=== PATIENT | female | born 1970 | race Caucasian/White ===

== ENCOUNTER 2020-01-04 10:21 | Emergency (ER) | payer OTHER, SELFPAY ==
--- NOTE | 2020-01-04 10:28 | ED.GENADULT ---
HPI - General Adult General Stated complaint: vaping celulitis Time Seen by Provider: 01/04/20 10:31 Source: patient Mode of arrival: ambulatory Limitations: no limitations Related Data Allergies Allergy/AdvReac Type Severity Reaction Status Date / Time No Known Allergies Allergy Unknown Verified 10/17/18 07:34 Review of Systems Review of Systems: Narrative: CONSTITUTIONAL: Denies fever, chills, or sweats. EYES: Denies visual changes, redness, or discharge. ENT: Denies rhinorrhea, congestion, sore throat, or otalgia. CARDIOVASCULAR: Denies chest pain, palpitations, or edema. RESPIRATORY: Denies cough or dyspnea. GASTROINTESTINAL: Denies abdominal pain, nausea, vomiting, or diarrhea. GENITOURINARY: Denies dysuria or hematuria. SKIN: Denies rash or itching. MUSCULOSKELETAL: Denies back pain, joint pain, or myalgia. NEUROLOGIC: Denies headache, numbness, or weakness. PSYCHIATRIC: Denies anxiety or depression. [facility] Past Medical History Medical History (Updated 01/04/20 @ 10:31 by VERNON Jacobo) Chronic back pain Hypertension Hypothyroidism Comments At the time of my signature I agree with nursing past medical history, surgical, social, and family history. There is no relevant family history pertinent to the presenting complaint. Exam Narrative: Exam Narrative: GENERAL: Well-appearing, well-nourished, and in no acute distress. HEAD: Normocephalic, atraumatic. EYES: PERRLA and EOMI. ENT: Nares clear, no rhinorrhea or epistaxis. Mucous membranes moist. NECK: Supple. No lymphadenopathy CHEST: Clear to auscultation. No respiratory distress. HEART: Regular rate and rhythm. No murmur heard. Normal peripheral pulses. ABDOMEN: Soft, nontender, nondistended, normal active bowel sounds. EXTREMITIES: Normal range of motion. No edema. SKIN: Warm, dry, no rash. NEURO: No focal deficits. Alert and oriented x3. Course Vital Signs Vital signs: Vital signs reviewed. Medical Decision Making Differential Diagnosis Differential Diagnosis: Differential diagnosis: Critical Care Time Critical Care Time Critical Care Time: No
== END 2020-01-04 10:35 | disposition left against medical advice (07) ==
LOC: EXPBETH 10:24
PROVIDERS: Emergency Provider Nurse Practitioner Family; PCP Physician Assistant
DX: Z53.21 Procedure and treatment not carried out due to patient leaving prior to being seen by health care provider (principal)
CPT/HCPCS: 99199

== ENCOUNTER 2020-01-04 11:20 | Emergency (ER) | payer OTHER, SELFPAY ==
--- NOTE | ~2020-01-04 | US_ITS ---
EXAMINATION: US venous doppler LE EXAM DATE: 01/04/2020 13:00 INDICATION: Bilateral leg swelling. TECHNIQUE: Multiple grayscale, color flow and Doppler images of the lower extremity deep venous syste ms bilaterally were obtained and reviewed. There is no prior study for comparison. FINDINGS: Right side: The right common femoral, femoral and profunda veins demonstrate normal color flow, respi ratory variation, augmentation and compressibility. Compressibility, color flow confirmed within the right popliteal, posterior tibial, peroneal, and greater saphenous veins. Left side: The left common femoral, femoral and profunda veins demonstrate normal color flow, respira tory variation, augmentation and compressibility. Compressibility, color flow confirmed within the l eft popliteal, posterior tibial, peroneal, and greater saphenous veins. IMPRESSION: 1. No lower extremity deep venous thrombosis bilaterally. Reviewed, dictated and finalized at location B.
[2020-01-04 11:26] VITALS: BP 148/96; PULSE 76; RESP 17; TEMP 37.1; O2SAT 98
[2020-01-04] MEDS: SODIUM CHLORIDE 0.9% IV 1,000 ML 999 ML IV CONT (13:01)
[2020-01-04 13:08] LABS: Basophils Percent Auto 0.3 % (0.2-1.2); Eosinophils Absolute Auto 0.1 K/mm3 (0-0.3); Eosinophils Percent Auto 1.6 % (0-4.4); Hematocrit 43.6 % (37.0-47.0); Hemoglobin 14.9 g/dL (12.0-15.0); Immature Granulocyte Absolute 0.02 K/mm3 (0.00-0.031); Immature Granulocyte Percent A 0.3 % (0-0.5); Lymphocytes Absolute Auto 1.51 K/mm3 (0.9-3.2); Lymphocytes Percent Auto 19.9 % (18.3-44.2); Mean Corpuscular HGB Conc 34.2 g/dl (32-36); Mean Corpuscular Hemoglobin 30.8 pg (26-34); Mean Corpuscular Volume 90.1 fl (80-100); Mean Platelet Volume 10.1 fl (7.4-10.4); Monocytes Absolute Auto 0.4 K/mm3 (0.1-0.6); Monocytes Percent Auto 4.6 % (2.6-8.5); Neutrophils Absolute Auto 5.6 K/mm3 (1.3-6.7); Neutrophils Percent Auto 73.3 % (45.5-73.1); Platelet Count Result 273 k/mm3 (150-375); Red Blood Count 4.84 M/mm3 (4.2-5.4); Red Cell Distribution Width 13.2 % (11.5-14.5); White Blood Count 7.6 K/mm3 (4.5-10.0)
[2020-01-04 13:20] LABS: Prothrombin Time 12.5 Seconds (11.1-14.7)
[2020-01-04 13:21] LABS: Alanine Aminotransferase 30 U/L (4-35); Albumin Level 4.4 g/dL (3.5-5.1); Alkaline Phosphatase 78 U/L (38-126); Anion Gap 6 mmol/L (8-16); Aspartate Amino Transferase 26 U/L (14-36); Bilirubin,Total 0.4 mg/dL (0.2-1.3); Blood Urea Nitrogen 8 mg/dL (7-17); Carbon Dioxide 24 mmol/L (22-30); Chloride 108 mmol/L (98-107); Creatine Kinase 46 U/L (30-135); Estimated CRCL calculation 122 ml/min; Estimated Glomerular Filt Rate > 60; Glucose 119 mg/dL (65-105); Magnesium 2.2 mg/dL (1.6-2.3); Partial Thromboplastin Time 24.6 SECONDS (22.3-36.8); Phosphorus 3.6 mg/dL (2.5-4.5); Potassium 4.1 mmol/L (3.4-5.0); Sodium 138 mmol/L (137-145)
--- NOTE | 2020-01-04 13:25 | ED.GENADULT ---
HPI - General Adult General Chief complaint: Extremity Injury, Lower <RAMILA Beth Last Filed: 01/04/20 14:24> Stated complaint: redness to left leg <RAMILA Beth Last Filed: 01/04/20 14:24> Time Seen by Provider: 01/04/20 12:08 <RAMILA Beth Last Filed: 01/04/20 14:24> Source: patient <RAMILA Beth Last Filed: 01/04/20 14:24> Mode of arrival: ambulatory <RAMILA Beth Last Filed: 01/04/20 14:24> Limitations: no limitations <RAMILA Beth Last Filed: 01/04/20 14:24> History of Present Illness HPI narrative: Patient is a 49-year-old female who presents to emergency department for evaluation of petechial rash to the bilateral lower extremities from the knees down to the distal shins. Patient notes that she has had some tingling and numbness in her feet bilaterally during this. Patient denies similar occurrence in the past or any injury or trauma patient notes aching pain that is minimal in nature patient denies any recent illness or sick contacts with similar occurrence patient has not taken anything for her symptoms patient went to urgent care today and was sent to emergency department for evaluation. Patient presents per private vehicle in no distress <RAMILA Beth Last Filed: 01/04/20 14:24> Related Data Home medications: Home Medications Medication Instructions Recorded Confirmed atenolol 50 mg PO DAILY 01/04/20 furosemide 20 mg PO DAILY 01/04/20 levothyroxine 75 mcg PO DAILY 01/04/20 <RAMILA Beth Last Filed: 01/04/20 14:24> Allergies/adverse reactions: Allergies Allergy/AdvReac Type Severity Reaction Status Date / Time No Known Allergies Allergy Unknown Verified 10/17/18 07:34 <RAMILA Beth Last Filed: 01/04/20 14:24> Review of Systems Review of Systems: All systems reviewed & are unremarkable except as noted in HPI and below <RAMILA Beth Last Filed: 01/04/20 14:24> [facility] Past Medical History Medical History: Medical History Chronic back pain Hypertension Hypothyroidism <Andrew Michelle PA-C - Last Filed: 01/04/20 14:24> Social History Social History: Social History Gender identity (if verbalized by the patient): Female <Andrew Michelle PA-C - Last Filed: 01/04/20 14:24> Exam Narrative: Exam Narrative: GENERAL: Well-appearing, obese, and in no acute distress. HEAD: Normocephalic, atraumatic. EYES: PERRLA and EOMI. ENT: Nares clear, no rhinorrhea or epistaxis. Mucous membranes moist. Oropharynx without tonsillar hypertrophy exudate or other lesions. CHEST: Clear to auscultation. No respiratory distress. No wheezes rales or rhonchi HEART: Regular rate and rhythm. No murmur heard. Normal peripheral pulses. EXTREMITIES: Normal range of motion. No edema. SKIN: Warm, dry, no rash. Petechial rash to the bilateral shins and calves NEURO: No focal deficits. Alert and oriented x3. Neurovascularly intact. Capillary refill less than 2 seconds. Patient with strong distal pulses PSYCH: Normal mood and affect. <Andrew Michelle PA-C - Last Filed: 01/04/20 14:24> Course Course Emergency Course: Patient in the room in no distress resting comfortably aware of case findings treatment plan and diagnosis patient was given fluids in the emergency department is aware of case findings and treatment plan agreeing to follow with primary care this week patient provided with reasons to return patient was hydrated in the emergency department <Andrew Michelle PA-C - Last Filed: 01/04/20 14:24> Vital Signs Vital signs: Vital Signs Temperature 98.7 F 01/04/20 11:26 Pulse Rate 76 01/04/20 11:26 Respiratory Rate 17 01/04/20 11:26 Blood Pressure 148/96 H 01/04/20 11:26 Pulse Oximetry 98
[2020-01-04 14:41] VITALS: BP 136/65; PULSE 70; RESP 12; O2SAT 99
== END 2020-01-04 14:42 | disposition home or self-care (01) ==
PROVIDERS: Emergency Medicine Emergency Medical Services; Emergency Provider Emergency Medicine; PCP Physician Assistant
DX: R21 Rash and other nonspecific skin eruption (principal); I10 Essential (primary) hypertension; E03.9 Hypothyroidism, unspecified
CPT/HCPCS: 36415; 80053; 82550; 83735; 84100; 85025; 85610; 85730; 93970; 96360; 99284; J7030

== ENCOUNTER 2024-03-21 20:24 | Emergency (ER) | payer OTHER, SELFPAY ==
[2024-03-21 20:25] VITALS: BP 143/116; PULSE 74; RESP 18; TEMP 36.6; O2SAT 96
[2024-03-21] MEDS: KETOROLAC (*BKC) 60 MG/2 ML VIAL IM (20:43)
[2024-03-21] MEDS: TETANUS,DIPHTHERIA,AC PERTUSSIS ADULT 0.5 ML (ADACEL) IM (20:44)
--- NOTE | 2024-03-21 20:52 | ED_ITS ---
HPI - Head Injury General Chief complaint: Head Injury Stated complaint: backdrop fell on head Time Seen by Provider: 03/21/24 20:26 Source: patient and family Mode of arrival: ambulatory Limitations: no limitations History of Present Illness HPI Narrative: this is a 53-year-old female with history of hypertension and hypothyroidism I had an injury where a baseboard fell on the left occipital region of her scalp causing a laceration mildly gaping approximately 5cm in length with no loss of consciousness no other injuries patient is not up-to-date with her tetanus and does rate her pain about a 6/10. There is no nausea vomiting no blurry vision. Complaint: head injury Onset (ago): hour(s) Place: home Loss of Consciousness: no Location of injury: occipital Severity: moderate Severity scale (1-10): 6 Quality: dull Related Data Home Medications Medication Instructions Recorded Confirmed atenolol 25 mg tablet 50 mg PO DAILY 01/04/20 07/29/23 furosemide 20 mg tablet 20 mg PO DAILY 01/04/20 07/29/23 levothyroxine 75 mcg tablet 75 mcg PO DAILY 01/04/20 07/29/23 bupropion HCl 200 mg tablet,12 hr mg PO 01/22/23 07/29/23 sustained-release Allergies Allergy/AdvReac Type Severity Reaction Status Date / Time Latex, Natural Rubber AdvReac Intermediate Hives Verified 07/29/23 08:18 Review of Systems Review of Systems: All systems reviewed & are unremarkable except as noted in HPI and below PMFSH Past Medical History Medical History Chronic back pain HPV in female Hypertension Hypothyroidism Migraines Screening mammogram, encounter for Surgical History Surgical History History of musculoskeletal system surgery (07/19/17) sweat gland removed History of robot-assisted laparoscopic hysterectomy (10/27/18) RA TLH--menometrorrhagia, dysmenorrhea, uterine fibroid History of sacrocolpopexy (10/27/18) urinary incontinence History of tubal ligation (10/14/98) Family History Family History Grandparent Hypertension maternal grandmother Mother Diabetes mellitus pacemaker Other Lung cancer maternal aunt Bone cancer maternal aunt Other Heart disease Social History Social History Smoking status: Never smoker Second hand tobacco smoke exposure: Yes (growing up) Alcohol intake: former Alcohol use details: social 2-3 month Substance use: never Substance use type: does not use Do You Feel Safe in your Home?: Yes Current Housing: Decline to Answer Concerned About Future Housing: Decline to Answer Difficulty Paying Gas/Electric Bills: Decline to Answer Difficulty Paying for Meds: Decline to Answer Currently Unemployed: Decline to Answer Education: Decline to Answer Difficulty w/ Childcare or Family Care: Decline to Answer Living arrangements: other Additional living arrangements comments: Occupation/Education: occupation 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 Gender identity (if verbalized by the patient): Female Sexual Orientation (if Verbalized by the Patient): Straight or Heterosexual Exam Const: General: healthy appearing and no acute distress Nutritional Appearance: well nourished Orientation/consciousness: patient oriented x3 Eyes: Conjunctivae: conjunctivae normal Pupils: Equal, round and reactive pupils present Neck: Neck: normal visual inspection, no lymphadenopathy and no meningeal signs Chest: Chest palpation & inspection: normal inspection of the chest Resp: Effort & Inspection: normal respiratory effort Auscultation: clear to auscultation bilaterally Cardio: Rate: regular rate Rhythm: regular rhythm Neuro: General: patient oriented x3, moves all extremities, no meningeal signs and no focal motor deficits Extrem: Other: mildly gaping laceration left occipital scalp area Course Course Emergency Course: patient received a dose of Adacel to update with tetanus 60mg IM Toradol for pain, and jerson placed in left posterior scalp Vital Signs Vital signs: Vital Signs Temperature 36.6 C 03/21/24 20:25 Pulse Rate 74 03/21/24 20:25 Respiratory Rate 18 03/21/24 20:25 Blood Pressure 143/116 H 03/21/24 20:25 Pulse Oximetry 96 03/21/24 20:25 Oxygen Delivery Room Air 03/21/24 20:25 Temperature 36.6 C 03/21/24 20:25 Pulse Rate 74 03/21/24 20:25 Respiratory Rate 18 03/21/24 20:25 Blood Pressure 143/116 H 03/21/24 20:25 Pulse Oximetry 96 03/21/24 20:25 Oxygen Delivery Room Air 03/21/24 20:25 Procedures Laceration Laceration 1: Date: 03/21/24 Time: 20:56 Site: scalp Side (If applicable): left Size (cm): 5 Description: linear Depth: simple, single layer Pre-repair: wound explored, irrigated and irrigated extensively ====== Skin Level ====== Skin layer closed with: jerson Number of sutures: 7 ====== Subcutaneous Layer ====== ====== Muscle Layer ====== ====== Tendon Layer ====== Critical Care Time Critical Care Time Critical Care Time: No Discharge Plan Discharge Clinical Impression: Laceration, Minor head injury Patient Disposition: Home, Self-Care Condition: Stable Instructions: Antibiotic Form, Laceration (ED) Additional Instructions: advised follow-up in 1 week for staple removal take medicine as prescribed. Prescriptions: New tramadol 50 mg tablet 50 mg PO Q6H PRN (Reason: pain) Qty: 20 0RF No Action cephalexin 750 mg capsule 750 mg PO Q8H Qty: 30 3RF bupropion HCl 200 mg tablet sustained-release 12 hr PO atenolol 25 mg Tablet 50 mg PO DAILY levothyroxine 75 mcg Tablet 75 mcg PO DAILY furosemide 20 mg Tablet 20 mg PO DAILY Follow-up/Referrals: Harms,Michael Shipman M.D. [Primary Care Provider] - Time of Disposition: 20:59
--- NOTE | 2024-03-21 20:55 | PC.NURSE ---
this RN stayed at the bedside while jerson to back of the head were being placed by dr suarez.
[2024-03-21 21:12] VITALS: BP 136/88; PULSE 87; RESP 18; O2SAT 95
== END 2024-03-21 21:13 | disposition home or self-care (01) ==
PROVIDERS: Emergency Provider Emergency Medicine; PCP Family Medicine
DX: S01.01XA Laceration without foreign body of scalp, initial encounter (principal); E03.9 Hypothyroidism, unspecified; I10 Essential (primary) hypertension; Z23 Encounter for immunization; W22.8XXA Striking against or struck by other objects, initial encounter
CPT/HCPCS: 12002; 90715; 99283; J1885

== ENCOUNTER 2024-09-12 17:11 | Emergency (ER) | payer OTHER, SELFPAY ==
--- NOTE | ~2024-09-12 | XR_ITS ---
XR shoulder LT min 2V Ordering provider: Jason Silverman MD History: . Fall, Lt. shoulder pain limited ROM . Comparison: None. FINDINGS: BONES: Fracture in the distal left humerus. JOINT SPACES: The acromioclavicular joint shows mild osteoarthritic changes. Degenerative changes in the area of the supraspinatous tendon insertion. The glenohumeral joint is normal. SOFT TISSUES: Normal. IMPRESSION: Fracture distal left femur. Reviewed, dictated and finalized at location A. IMPRESSION: Fracture distal left femur.
--- NOTE | ~2024-09-12 | XR_ITS ---
XR wrist LT min 3V Ordering provider: Jason Silverman MD History: . Fall, Lt. wrist pain limited ROM . Comparison: None. FINDINGS: BONES: No acute fracture or dislocation. No definite scaphoid fracture. JOINT SPACES: Well maintained. SOFT TISSUES: Normal. IMPRESSION: No acute osseous abnormality left wrist. Reviewed, dictated and finalized at location A.
--- NOTE | ~2024-09-12 | XR_ITS ---
XR humerus LT Ordering provider: Jason Silverman MD History: . Fall, Lt. humerus pain limited ROM . Comparison: None FINDINGS: BONES: Oblique fracture in the distal end of the left humerus with minimal displacement. JOINT SPACES: Normal. SOFT TISSUES: Normal. IMPRESSION: Fracture in the distal one third of the left humerus. Reviewed, dictated and finalized at location A.
--- NOTE | ~2024-09-12 | XR_ITS ---
XR forearm LT 2V Ordering provider: Jason Silverman MD History: . Fall, Lt. forearm pain limited ROM . Comparison: None. FINDINGS: BONES: No acute fracture or dislocation. JOINT SPACES: Normal. SOFT TISSUES: Normal. IMPRESSION: No acute osseous abnormality left forearm. Reviewed, dictated and finalized at location A.
--- OUTSIDE RECORDS SUMMARY | 2024-09-12 17:15 | XMS_ITS | Clinical Summary ---
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 Gender Identity Not on file Sexual Orientation Not on file Plan of Treatment Health Maintenance Due Date Last Done Comments Cervical Cancer Screening Pa p Smear (Age 30 to 64) Every 3 Years 1972 Colorectal Cancer Screening Colonoscopy (10 Years) 1972 Annual Physical 1975 Hepatitis C 1990 DTaP, Tdap and Td Vaccines ( 1 - Tdap) 1991 Hepatitis B Vaccines (1 of 3 - 19+ 3-dose series) 1991 Cervical Cancer Screening Pa p with HPV Testing (Age 30 to 64) Every 5 Years 2002 Cervical Cancer Screening with HPV 2002 Mammogram Screening 2012 Pneumococcal Vaccine: 50+ Ye ars (1 of 1 - PCV) 2022 Zoster Vaccines (1 of 2) 2022 COVID-19 Vaccine ( - 2023-2 5 season) 2024 Meningococcal B Vaccine Aged Out No l onger eligible based on patient's age to complete this topic Meningococcal Vaccine Aged Out No chary jesús eligible based on patient's age to complete this topic RSV Immunizations Under 20 Months Aged Out No longer eligible based on patient's age to complete this topic
--- OUTSIDE RECORDS SUMMARY | 2024-09-12 17:15 | XMS_ITS | Clinical Summary ---
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 Plan of Treatment No Plan of Treatment Recorded Assessments Includes: Assessments from this encounter No Assessments Recorded Medical Equipment - Implanted Devices Includes: Current Devices No Medical Equipment Recorded Medications Administered Includes: Administered Medications from this encounter No Administered Medications Recorded Results Includes: Results discussed during this encounter No Results Recorded For Specified Dates History of Present Illness Includes: History of Present Illness from this encounter No History of Present Illness Recorded Social History No Social History Recorded - Smoking Status Unknown Medical History Includes: Medical History addressed during this encounter No Medical History Recorded Family History Includes: Family History addressed during this encounter No Family History Recorded Review of Systems Includes: Review of Systems from this encounter No Review of Systems Recorded Mental Status Includes: Mental Status from this encounter No Mental Status Recorded Functional Status Includes: Functional Status from this encounter No Functional Status Recorded Physical Exam Includes: Physical Exam from this encounter No Physical Exam Recorded Clinical Notes Includes: Clinical Notes from this encounter No Clinical Notes Recorded
--- OUTSIDE RECORDS SUMMARY | 2024-09-12 17:15 | XMS_ITS | Data Portability ---
Author Organization [facility] Address [address] [place] [address] Care Team Providers Care Seo Intern Name Role Phone DAVID QUIÑONEZ Primary Care Provider MARE HERNANDEZ Immigration Manager Unavailable Assessment No assessment recorded. Plan of Treatment Reminders Order Date Submit Date Provider Last Modified By Organization Details Last Modified Time Details Appointments None recorded. Lab CMP, serum or plasma 2020 021 [facility], [address] [facility], [facility] [address], [address], 06:15:30 CBC 2020 021 [facility], [address] [facility], [facility], [place], [address], 1 06:15:31 TSH, serum or plasma 2020 021 [facility], [address] [facility], [facility] [address], [address], 1 06:15:33 lipid panel, serum 2020 021 ANGELA [facility], [address], [place], [address], 1 06:15:32 CMP, serum or plasma 2019 020 [facility], [address] [facility], [facility], [place], [address], 0 07:10:32 lipid panel, serum 2019 020 ANGELA [facility], [address] [facility], [facility], [place], [address], 0 07:10:33 CBC 2019 020 AN[facility]EL[facility], [address] [facility], [address], [place], [address], 0 07:10:33 TSH + free T4, serum 2019 020 ANGELA [facility], [address] [facility], [facility], [place], [address], 0 07:10:32 HbA1c (hemoglobi n A1c), blood 2019 020 ANGELA In-Office Order, Internal Use Only DO Not Attach Compendium DO Not Attach Compendium, Do Not Delete/merge, [id number] 0 11:53:47 Referral None recorded. Procedures None recorded. Surgeries None recorded. Imaging MAMMO, screening, bilateral 2021 022 ANGELA [facility] (Radiology), [address] [facility] [place], [address], 2 11:41:28 Medication Orders mupirocin 2 % topical ointment 2021 022 ANGELA [facility], [address] [place] [address], [address], 2 16:03:04 bupropion HCl SR 200 mg tablet,12 hr sustained- release 2020 021 ANGELA [facility], [address] [place] [address], [address], 1 18:05:38 bupropion HCl SR 150 mg tablet,12 hr sustained- release 2020 021 senait [facility], [address] [place] [address], [address], 1 18:05:20 acyclovir 800 mg tablet 2019 INTERFACE [facility], [address] [place] [address], [address], 0 11:32:38 furosemide 40 mg tablet 2019 020 INTERFACE [facility], [address] [place] [address], [address], 0 11:32:42 [facility]se 30 mg capsule [facility] [address] [place] [address], [address], 1 11:31:44 [facility]izine 25 mg tablet 2019 [facility] [address] [place] [address], [address], 1 11:31:06 Patient TargetsNo targets recorded. Patient Instructions Encounter Date Encounter Id Patient Instructions Last Modified By Organization Details Last Modified Time 09/08/2019 [id number] When You Want to Lose Weight: Care Instructions jnanney Not available 09/08/2019 18:57:42 benign paroxysma l positional vertigo (bppv): care instructions jnanney Not available 09/08/2019 18:57:42 03/30/2020 [id number] influenza (flu) vaccine: care instructions jnanney Not available 03/30/2020 11:31:38 sleep apnea: car e instructions jnanney Not available 03/30/2020 11:31:38 CPAP titration study* - send to Dr. Chris ybarra Not available 04/27/2020 11:03:55 learning about high blood pressure jnanney Not available 03/30/2020 11:31:37 08/01/2020 [id number] anxiety disorder : care instructions jnanney Not available 08/01/2020 11:53:53 learning about high blood pressure jnanney Not available 08/01/2020 11:53:06 04/18/2021 [id number] learning about high blood pressure jnanney Not available 04/18/2021 18:04:33 08/24/2021 [id number] mammogram: about this test jnanney Not available 08/24/2021 16:17:08 Reason for Referral None Reported. Results Created Date Observation Date Name Description Value Unit Range Abnormal Flag Note LastModifiedBy Organization Detail LastModifiedTime 03/30/2003/31/2020 TSH + free T4, serum TSH 1.470 uIU/m L 0.450- 4.500 Not Available [facility] ([facility]) [address] [place], [address], 03/31/2020 07:10:32 03/30/2003/31/2020 TSH + free T4, serum T4,free(dire ct) 1.26 NG/dL 0.82-1 .77 Not Available [facility] ([facility]) [address] [place], [address], 03/31/2020 07:10:32 03/30/2003/31/2020 CMP, serum or plasm a glucose 104 mg/dL 65-99 above high normal Not Available [facility] ([facility]) [address] [place], [address], 03/31/2020 07:10:32 03/30/2003/31/2020 CMP, serum or plasm a BUN 15 mg/dL 6-24 Not Available [facility] ([facility]) [address] [place], [address], 03/31/2020 07:10:32 03/30/2003/31/2020 CMP, serum or plasm a creatinine 0.82 mg/dL 0.57-1 .00 Not Available [facility] ([facility]) [address] [place], [address], 03/31/2020 07:10:32 03/30/2003/31/2020 CMP, serum or plasm a eGFR if nonafricn AM 85 mL/mi n/1.7 3 >59 Not Available [facility] ([facility]) [address] [facility] [place], [address], 03/31/2020 07:10:32 03/30/20 20 03/31/2020 CMP, serum or plasm a eGFR if africn AM 99 mL/mi n/1.7 3 >59 Not Available [facility] ([facility]) [address] [facility], [place], [address], 03/31/2020 07:10:32 03/30/20 20 03/31/2020 CMP, serum or plasm a BUN/creatini ne ratio 18 9-23 Not Available [facility] ([facility]) [address] [facility], [place], [address], 03/31/2020 07:10:32 03/30/2003/31/2020 CMP, serum or plasm a sodium 139 mmol/ L 134-14 4 Not Available [facility] ([place] [facility]) [address] [facility], [place], [address], 03/31/2020 07:10:32 03/30/2003/31/2020 CMP, serum or plasm a potassium 4.3 mmol/ L 3.5-5. 2 Not Available [facility] ([place] [facility] [facility]) [address] [facility] [place], [address], 03/31/2020 07:10:32 03/30/2003/31/2020 CMP, serum or plasm a chloride 103 mmol/ L 96-106 Not Available [facility] ([place] [facility] [facility]) [address] [facility], [place], [address], 03/31/2020 07:10:32 03/30/2003/31/2020 CMP, serum or plasm a carbon dioxide, total 20 mmol/ L 20-29 Not Available [facility] ([facility] [facility]) [address] [place], [address], 03/31/2020 07:10:32 03/30/2003/3103/31/2020 CMP, serum or plasm a calcium 9.7 mg/dL 8.7-10 .2 Not Available [facility] ([facility]) [address] [place], [address], 03/31/2020 07:10:32 03/30/20 20 03/31/2020 CMP, serum or plasm a protein, total 7.6 g/dL 6.0-8. 5 Not Available [facility] ([facility]) [address] [place], [address], 03/31/2020 07:10:32 03/30/2003/31/2020 CMP, serum or plasm a albumin 4.5 g/dL 3.8-4. 8 Not Available [facility] ([facility]) [address] [place], [address], 03/31/2020 07:10:32 03/30/20 20 03/31/2020 CMP, serum or plasm a globulin, total 3.1 g/dL 1.5-4. 5 Not Available [facility] ([facility]) [address] [place], [address], 03/31/2020 07:10:32 03/30/20 20 03/31/2020 CMP, serum or plasm a A/G ratio 1.5 1.2-2. 2 Not Available [facility] ([facility]) [address] [place], [address], 03/31/2020 07:10:32 03/30/20 20 03/31/2020 CMP, serum or plasm a bilirubin, total 0.4 mg/dL 0.0-1. 2 Not Available [facility] ([facility]) [address] [place], [address], 03/31/2020 07:10:32 03/30/20 20 03/31/2020 CMP, serum or plasm a alkaline phosphatase 90 IU/L 39-117 Not Available [facility] ([facility]) [address] [facility] [place], [address], 03/31/2020 07:10:32 03/30/20 20 03/31/2020 CMP, serum or plasm a AST (SGOT) 13 IU/L 0-40 Not Available [facility] ([facility]) [address] [facility] [place], [address], 03/31/2020 07:10:32 03/30/2003/31/2020 CMP, serum or plasm a ALT (SGPT) 18 IU/L 0-32 Not Available [facility] ([facility]) [address] [facility] [place], [address], 03/31/2020 07:10:32 03/30/2003/31/2020 CBC WBC 9.0 x10e3 /uL 3.4-10 .8 Not Available [facility] ([facility]) [address] [place], [address], 03/31/2020 07:10:33 03/30/2003/31/2020 CBC RBC 4.85 x10e6 /uL 3.77-5 .28 Not Available [facility] ([facility]) [address] [facility] [place], [address], 03/31/2020 07:10:33 03/30/2003/31/2020 CBC hemoglobin 14.8 g/dL 11.1-1 5.9 Not Available [facility] ([facility]) [address] [place], [address], 03/31/2020 07:10:33 03/30/2003/31/2020 CBC hematocrit 43.5 % 34.0-4 6.6 Not Available [facility] ([facility]) [address] [place], [address], 03/31/2020 07:10:33 03/30/2003/31/2020 CBC MCV 90 fL 79-97 Not Available [facility] ([facility]) [address] [facility] [place], [address], 03/31/2020 07:10:33 03/30/2003/31/2020 CBC MCH 30.5 pg 26.6-3 3.0 Not Available [facility] ([facility]) [address], [place], [address], 03/31/2020 07:10:33 03/30/2003/31/2020 CBC MCHC 34.0 g/dL 31.5-3 5.7 Not Available [facility] ([facility]) [address] [place], [address], 03/31/2020 07:10:33 03/30/2003/31/2020 CBC RDW 12.8 % 11.7-1 5.4 Not Available [facility] ([facility]) [address] [facility] [place], [address], 03/31/2020 07:10:33 03/30/2003/31/2020 CBC platelets 312 x10e3 /uL 150-45 0 Not Available [facility] ([facility]) [address] [facility] [place], [address], 03/31/2020 07:10:33 03/30/2003/31/2020 CBC NRBC STOVE FITTER Not Available [facility] ([facility]) [address] [facility] [place], [address], 03/31/2020 07:10:33 03/30/2003/31/2020 lipid panel , serum cholesterol, total 220 mg/dL 100-19 9 above high normal Not Available [facility] ([facility]) [address] [facility] [place], [address], 03/31/2020 07:10:33 03/30/2003/31/2020 lipid panel , serum triglyceride s 203 mg/dL 0-149 above high normal Not Available [facility] ([facility]) [address] [facility] [place], [address], 03/31/2020 07:10:33 03/30/20 20 03/31/2020 lipid panel , serum HDL cholesterol 54 mg/dL >39 Not Available [facility] ([facility]) [address] [facility], [place], [address], 03/31/2020 07:10:33 03/30/20 20 03/31/2020 lipid panel , serum VLDL cholesterol kalin 36 mg/dL 5-40 Not Available [facility] ([facility]) [address] [facility], [place], [address], 03/31/2020 07:10:33 03/30/20 20 03/31/2020 lipid panel , serum LDL chol calc ([facility]) 130 mg/dL 0-99 above high normal Not Available [facility] ([facility]) [address] [facility], [place], [address], 03/31/2020 07:10:33 03/30/20 20 03/31/2020 lipid panel , serum comment: STOVE FITTER Not Available [facility] ([facility]) [address] [facility], [place], [address], 03/31/2020 07:10:33 03/30/20 20 03/31/2020 cardi ovasc ular asses sment panel , serum interpretati on Note Suppl emannamarie al repor t is avail able. Not Available [facility] ([facility]) [address] [facility], [place], [address], 03/31/2020 07:10:34 03/30/2003/31/2020 cardi ovasc ular asses sment panel , serum pdf . Not Available [facility] ([facility]) [address] [facility], [place], [address], 03/31/2020 07:10:34 03/30/2003/30/2020 HbA1c (hemo globi n A1c), blood HbA1c 6.0 Not Available In-Office Order Internal Use Only DO Not Attach Compendium DO Not Attach Compendium, Do Not Delete/merge, [id number] 03/30/2020 11:31:54 04/18/20 21 04/20/2021 COMP. METAB OLIC PANEL (14) glucose 91 mg/dL 65-99 Not Available [facility] ([facility]) [address] [facility], [place], [address], 04/26/2021 06:15:29 04/18/20 21 04/20/2021 COMP. METAB OLIC PANEL (14) BUN 19 mg/dL 6-24 Not Available [facility] ([facility]) [address] [place], [address], 04/26/2021 06:15:29 04/18/20 21 04/20/2021 COMP. METAB OLIC PANEL (14) creatinine 0.84 mg/dL 0.57-1 .00 Not Available [facility] ([facility]) [address] [place], [address], 04/26/2021 06:15:29 04/18/20 21 04/20/2021 COMP. METAB OLIC PANEL (14) eGFR if nonafricn AM 82 mL/mi n/1.7 3 >59 Not Available [facility] ([facility]) [address] [facility], [place], [address], 04/26/2021 06:15:29 04/18/20 21 04/20/2021 COMP. METAB OLIC PANEL (14) eGFR if africn AM 95 mL/mi n/1.7 3 >59 In accor dance with recom menda tions from the NKF-A SN Task force , [facility] is in the proce ss of updat ing its eGFR calcu latio n to the 2020 CKD-E PI creat inine equat ion that estim ates kidne y funct ion witho ut a race varia ble. Not Available [facility] ([facility]) [address] [place], [address], 04/26/2021 06:15:29 04/18/20 21 04/20/2021 COMP. METAB OLIC PANEL (14) BUN/creatini ne ratio 23 9-23 Not Available [facility] ([facility]) [address] [facility] [place], [address], 04/26/2021 06:15:29 04/18/20 21 04/20/2021 COMP. METAB OLIC PANEL (14) sodium 139 mmol/ L 134-14 4 Not Available [facility] ([facility]) [address] [facility] [place], [address], 04/26/2021 06:15:29 04/18/20 21 04/20/2021 COMP. METAB OLIC PANEL (14) potassium 4.2 mmol/ L 3.5-5. 2 Not Available [facility] ([facility]) [address] [facility] [place], [address], 04/26/2021 06:15:29 04/18/20 21 04/20/2021 COMP. METAB OLIC PANEL (14) chloride 100 mmol/ L 96-106 Not Available [facility] ([facility]) [address] [facility] [place], [address], 04/26/2021 06:15:29 04/18/20 21 04/20/2021 COMP. METAB OLIC PANEL (14) carbon dioxide, total 21 mmol/ L 20-29 Not Available [facility] ([facility]) [address] [place], [address], 04/26/2021 06:15:29 04/18/20 21 04/20/2021 COMP. METAB OLIC PANEL (14) calcium 9.3 mg/dL 8.7-10 .2 Not Available [facility] ([facility]) [address] [place], [address], 04/26/2021 06:15:29 04/18/20 21 04/20/2021 COMP. METAB OLIC PANEL (14) protein, total 7.2 g/dL 6.0-8. 5 Not Available [facility] ([facility]) [address] [facility], [place], [address], 04/26/2021 06:15:29 04/18/20 21 04/20/2021 COMP. METAB OLIC PANEL (14) albumin 4.5 g/dL 3.8-4. 8 Not Available [facility] ([facility]) [address] [facility] [place], [address], 04/26/2021 06:15:29 04/18/20 21 04/20/2021 COMP. METAB OLIC PANEL (14) globulin, total 2.7 g/dL 1.5-4. 5 Not Available [facility] ([facility]) [address] [facility], [place], [address], 04/26/2021 06:15:29 04/18/20 21 04/20/2021 COMP. METAB OLIC PANEL (14) A/G ratio 1.7 1.2-2. 2 Not Available [facility] ([facility]) [address] [facility] [place], [address], 04/26/2021 06:15:29 04/18/20 21 04/20/2021 COMP. METAB OLIC PANEL (14) bilirubin, total 0.2 mg/dL 0.0-1. 2 Not Available [facility] ([facility]) [address] [facility], [place], [address], 04/26/2021 06:15:29 04/18/20 21 04/20/2021 COMP. METAB OLIC PANEL (14) alkaline phosphatase 79 IU/L 44-121 Ple ase note refer ence inter miguel noonan e Not Available [facility] ([facility]) [address] [facility] [place], [address], 04/26/2021 06:15:29 04/18/20 21 04/20/2021 COMP. METAB OLIC PANEL (14) AST (SGOT) 17 IU/L 0-40 Not Available [facility] ([facility]) [address] [facility], [place], [address], 04/26/2021 06:15:29 04/18/2004/20/2021 COMP. METAB OLIC PANEL (14) ALT (SGPT) 19 IU/L 0-32 Not Available [facility] ([facility]) [address] [facility], [place], [address], 04/26/2021 06:15:29 04/18/20 21 04/20/2021 CBC, PLATE LET, NO DIFFE RENTI AL WBC 7.4 x10e3 /uL 3.4-10 .8 Not Available [facility] ([facility]) [address] [facility], [place], [address], 04/26/2021 06:15:31 04/18/2004/20/2021 CBC, PLATE LET, NO DIFFE RENTI AL RBC 4.74 x10e6 /uL 3.77-5 .28 Not Available [facility] ([facility]) [address] [facility], [place], [address], 04/26/2021 06:15:31 04/18/2004/20/2021 CBC, PLATE LET, NO DIFFE RENTI AL hemoglobin 14.9 g/dL 11.1-1 5.9 Not Available [facility] ([facility]) [address] [facility], [place], [address], 04/26/2021 06:15:31 04/18/2004/20/2021 CBC, PLATE LET, NO DIFFE RENTI AL hematocrit 43.1 % 34.0-4 6.6 Not Available [facility] ([facility]) [address] [facility], [place], [address], 04/26/2021 06:15:31 04/18/20 21 04/20/2021 CBC, PLATE LET, NO DIFFE RENTI AL MCV 91 fL 79-97 Not Available [facility] ([facility]) [address], [place], [address], 04/26/2021 06:15:31 04/18/20 21 04/20/2021 CBC, PLATE LET, NO DIFFE RENTI AL MCH 31.4 pg 26.6-3 3.0 Not Available [facility] ([facility]) [address] [facility], [place], [address], 04/26/2021 06:15:31 04/18/20 21 04/20/2021 CBC, PLATE LET, NO DIFFE RENTI AL MCHC 34.6 g/dL 31.5-3 5.7 Not Available [facility] ([facility]) [address] [facility], [place], [address], 04/26/2021 06:15:31 04/18/20 21 04/20/2021 CBC, PLATE LET, NO DIFFE RENTI AL RDW 12.6 % 11.7-1 5.4 Not Available [facility] ([facility]) [address] [facility], [place], [address], 04/26/2021 06:15:31 04/18/2004/20/2021 CBC, PLATE LET, NO DIFFE RENTI AL platelets 342 x10e3 /uL 150-45 0 Not Available [facility] ([facility]) [address] [facility], [place], [address], 04/26/2021 06:15:31 04/18/2004/20/2021 CBC, PLATE LET, NO DIFFE RENTI AL NRBC STOVE FITTER Not Available [facility] ([facility]) [address] [facility], [place], [address], 04/26/2021 06:15:31 04/18/2004/20/2021 LIPID PANEL cholesterol, total 213 mg/dL 100-19 9 above high normal Not Available [facility] ([facility]) [address] [facility], [place], [address], 04/26/2021 06:15:32 04/18/20 21 04/20/2021 LIPID PANEL triglyceride s 234 mg/dL 0-149 above high normal Not Available [facility] ([facility]) [address] [place], [address], 04/26/2021 06:15:32 04/18/20 21 04/20/2021 LIPID PANEL HDL cholesterol 51 mg/dL >39 Not Available [facility] ([facility]) [address] [facility], [place], [address], 04/26/2021 06:15:32 04/18/20 21 04/20/2021 LIPID PANEL VLDL cholesterol kalin 41 mg/dL 5-40 above high normal Not Available [facility] ([facility]) [address] [place], [address], 04/26/2021 06:15:32 04/18/20 21 04/20/2021 LIPID PANEL LDL chol calc ([facility]) 121 mg/dL 0-99 above high normal Not Available [facility] ([facility]) [address] [place], [address], 04/26/2021 06:15:32 04/18/20 21 04/20/2021 LIPID PANEL comment: STOVE FITTER Not Available [facility] ([facility]) [address] [facility], [place], [address], 04/26/2021 06:15:32 04/18/20 21 04/25/2021 THYRO ID STIMU LATIN G HORMO NE TSH-icma 2.3 uu/mL Refer ence Range : Non-P regna nt Adult 0.450 -4.50 0 Pregn saw First Trime ster 0.100 -4.00 0 Secon d Trime ster 0.200 -4.00 0 Third Trime ster 0.300 -4.50 0 Not Available [facility] [address] [facility], [place], [address], 04/26/2021 06:15:33 04/18/20 21 04/20/2021 CARDI OVASC ULAR REPOR T interpretati on Note Suppl ement al repor t is avail able. Not Available [facility] ([facility]) [address] [facility], [place], [address], 04/26/2021 06:15:34 04/18/20 21 04/20/2021 CARDI OVASC ULAR REPOR T pdf . Not Available [facility] ([facility]) [address] [facility], [place], [address], 04/26/2021 06:15:34 01/11/20 20 01/04/2020 US, doppl er, venou s No observ ation record ed. 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 [email or web address] [facility] [address] [place], [address], 11/03/2021 11:51:14 Result Notes None recorded. Problems Name Problem SNOMED Code Status Onset Date Resolution Date Notes Provider Name and Address Organization Details Recorded Time Essential hypertension 00914137 Active ANNA MARIE [place], [place] - [facility] 9 18:59:22 Anxiety 03383712 Active 2020 David Quiñonez PA-C Attn: Bryan g,[address] [facility], [place], [address], [facility] - SI 11:50:23 Obesity 811447078 Active ANNA MARIE [place], [place] - [facility] 9 18:59:22 Problem Notes None recorded. Procedures Surgical History Date Name Laterality Status Provider Name and Address Organization Details Recorded Time 01/19/20 19 Date of Last Pap Smear completed ANNA MARIE Orta - [facility] 08/01/2020 11:34:28 01/19/20 19 Most Recent Mammogram completed April Valverde [place] - [facility] 08/01/2020 11:34:22 10/19/19 19 partial hysterectomy completed Emeli Pulliam [place] - [facility] 03/30/2020 10:56:40 05/28/19 18 Date of Last Mammogram completed April Val[place]de [place] - [facility] 08/24/2021 15:48:37 Imaging Results Imaging Date Name Status LastModified by Organiz ation Details LastModified Time 01/04/2020 US, doppler, venous completed [email or web address] Information not available 01/11/2020 15:15:55 11/03/2021 MAMMO, screening, bilateral completed [facility] [address] [facility] [place], [address], 11/03/2021 11:51:14 Procedure Notes None recorded. Medical Equipment None Reported. Allergies No known drug allergies Medications Name Sig Start Date Stop Date Status Note LastModified by Organization Details LastModified Time atenolol 50 mg tabs 06/18 completed Not Available Not Available Not Available bupropion hcl sr 150 mg tb12 06/18 completed Not Available Not Available Not Available furosemide 40 mg tablet TAKE 1 TABLET BY MOUTH DAILY. 2021 active Not Available Not Available Not Avai lable bupropion HCl SR 150 mg tablet,12 hr sustained-r elease Take 1 tablet twice a day by oral route for 30 days. 04/18 completed Not Available Not Available Not Available albuterol sulfate 2.5 mg/3 mL (0.083 %) solution for nebulizatio n Inhale 3 mL 4 times a day by nebulizat ion route as needed. 08/01 completed Not Available Not Available Not Available hydrocodone 5 mg-acetamin ophen 325 mg tablet 02/17 completed Not Available Not Available Not Available ondansetron HCl 8 mg tablet Take 1 tablet every 8 hours by oral route as needed for 30 days. 06/18 completed Not Available Not Available Not Available prednisone 20 mg tablet Take 3 tablets every day by oral route for 5 days. 08/24 completed Not Available Not Available Not Available atenolol 25 mg tablet 06/18 completed Not Available Not Available Not Available Tamiflu 75 mg capsule 06/18 completed Not Available Not Available Not Available sulfamethox azole 800 mg-trimetho prim 160 mg tablet Take 1 tablet every 12 hours by oral route for 10 days. 07/12 completed Not Available Not Available Not Available butalbital- acetaminoph en-caffeine 50 mg-325 mg-40 mg tablet Take 1 tablet every 6 hours by oral route as needed. active Not Available Not Available No t Available acyclovir 800 mg tablet Take 1 tablet 5 times a day by oral route for 5 days. active Not Available Not Available No t Available Depo-Medrol 80 mg/mL suspension for injection Take 1 mL by injection route. 04/03 completed Not Available Not Available Not Available levothyroxi ne 75 mcg tablet TAKE 1 TABLET BY MOUTH DAILY. NEEDS APPT BEFORE NEXT REFILL 2021 active Not Available Not Available Not Avai lable levothyroxi ne 100 mcg tablet Take 1 tablet every day by oral route for 30 days. 04/03 completed Not Available Not Available Not Available meclizine 25 mg tablet Take 1 tablet 3 times a day by oral route as needed. 08/01 completed Not Available Not Available Not Available doxycycline monohydrate 100 mg capsule 05/21 completed Not Available Not Available Not Available levothyroxi ne 50 mcg tablet Take 1 tablet every day by oral route for 90 days. 10/09 completed Not Available Not Available Not Available mupirocin 2 % topical ointment APPLY A SMALL AMOUNT TO THE AFFECTED AREA BY TOPICAL ROUTE 3 TIMES PER DAY active Not Available Not Available No t Available furosemide 20 mg tablet TAKE ONE TABLET BY MOUTH ONCE DAILY. 08/01 completed Not Available Not Available Not Available methylpredn isolone 4 mg tablets in a dose pack 06/18 completed Not Available Not Available Not Available atenolol 50 mg tablet TAKE 1 TABLET BY MOUTH DAILY. NEEDS APPT BEFORE NEXT REFILL 2021 active Not Available Not Available Not Avai lable phentermine 37.5 mg capsule Take 1 capsule every day by oral route for 30 days. 07/12 completed Not Available Not Available Not Available bupropion HCl SR 200 mg tablet,12 hr sustained-r elease TAKE 1 TABLET BY MOUTH TWICE DAILY, NEEDS APPT BEFORE NEXT REFILL 2021 active Not Available Not Available Not Avai lable azithromyci n 500 mg tablet TAKE 1 TABLET BY MOUTH EVERY DAY FOR 3 DAYS 03/21 completed Not Available Not Available Not Available bupropion HCl XL 150 mg 24 hr tablet, extended release TAKE ONE TABLET TWICE ADAY. NEEDS APPT BEFORE NEXT REFILL 03/21 completed Not Available Not Available Not Available (28) 1.5 mg-30 mcg (21)/75 mg (7) tablet one a day 05/27 completed Not Available Not Available Not Available topiramate 50 mg tablet Take 1 tablet twice a day by oral route for 30 days. 04/03 completed Not Available Not Available Not Available nitrofurant oin monohydrate /macrocryst als 100 mg capsule 02/17 completed Not Available Not Available Not Available Vyvanse 30 mg capsule Take 1 capsule every day by oral route for 30 days. 08/01 completed Not Available Not Available Not Available Invokana 100 mg tablet Take 1 tablet every day by oral route around the clock for 90 days. 10/09 completed Not Available Not Available Not Available Fioricet 50 mg-300 mg-40 mg capsule Take 1 capsule every 4 hours by oral route as needed for 30 days. 06/18 completed Not Available Not Available Not Available butalbital 50 mg-acetamin ophen 300 mg-caffeine 40 mg-codeine 30 mg cap 1 qid prn 03/21 completed Not Available Not Available Not Available Contrave 8 mg-90 mg tablet,exte nded release TAKE 2 TABLETS BY MOUTH TWICE DAILY 06/18 completed Not Available Not Available Not Available Afluria Quad 60 mcg/0.5 mL intramuscul ar suspension 04/03 completed Not Available Not Available Not Available Vitals Date Recorded Body height Body temperature Body mass index (BMI) Body weight Oxygen saturation Oxygen saturation in Arterial blood by Pulse oximetry Heart rate Systolic blood pressure Diastolic blood pressure Provider Name and Address Organization Details Last Updated DateTime 0 157.48 cm 98.5 [degF] 49 kg/m2 708736. 76 g 98 % 98 % 68 /min 120 mm[Hg] 80 mm[Hg] April Valverde [place] - [facility] 0 18:23:19 Date Recorded Body height Body mass index (BMI) Body weight Body temperature Heart rate Systolic blood pressure Diastolic blood pressure Provider Name and Address Organization Details Last Updated DateTime 0 157.48 cm 47.6 kg/m2 754427. 02 g 97.3 [degF] 56 /min 132 mm[Hg] 78 mm[Hg] Emeli Pulliam MA [facility] 0 11:01:28 Date Recorded Body temperature Heart rate Body height Body mass index (BMI) Body weight Systolic blood pressure Diastolic blood pressure Provider Name and Address Organization Details Last Updated DateTime 1 97.4 [degF] 60 /min 157.48 cm 47.2 kg/m2 311547. 83 g 104 mm[Hg] 72 mm[Hg] April Valverde MA [facility] 1 17:57:56 Date Recorded Body temperature Oxygen saturation Oxygen saturation in Arterial blood by Pulse oximetry Heart rate Respiratory rate Body height Body mass index (BMI) Body weight Systolic blood pressure Diastolic blood pressure Provider Name and Address Organization Details Last Updated DateTime 2 97.3 [degF] 94 % 94 % 63 /min 16 /min 157.48 cm 44.1 kg/m2 442881. 76 g 122 mm[Hg] 82 mm[Hg] April Valverde MA [facility] 2 15:54:30 Social History Question Answer Notes LastModified by Organizat ion Details LastModified Time Tobacco Smoking Status Never Smoker Lou Estrada MA [facility] 07/01/2014 10:38:21 What Is Your Level Of Alcohol Consumption? Occasional Information not available 03/30/2020 What Is Your Level Of Caffeine Consumption? Occasional Information not available 08/01/2020 How Much Tobacco Do You Chew? None Information not available 03/30/2020 In The 14 Days Before Symptom Onset, Have You Had Close Contact With A Laboratory-[facility] COVID-19 While That Case Was Ill? No Information not available 09/08/2019 If Patient Spent Time In [facility] - Does The Patient Live In [facility]? No Information not available 09/08/2019 In The 14 Days Before Symptom Onset, Have You Had Close Contact With A Person Who Is Under Investigation For COVID-19 While That Person Was Ill? No Information not available 09/08/2019 In The 14 Days Before Symptom Onset, Did The Patient Spend Time In [facility]? No Information not available 09/08/2019 Have You Been To An Area Known To Be High Risk For COVID-19? No Information not available 09/08/2019 Are You Currently Employed? Yes Information not available 08/01/2020 What Type Of Diet Are You Following? REGULAR Information not available 03/30/2020 Which Illicit Or Recreational Drugs Have You Used? None Information not available 03/30/2020 Do You Or Have You Ever Used E-cigarettes Or Vape? 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 08/24/2021 Information not available 08/24/2021 How Many Children Do You Have? 2 [email or web address] Information not available 11/04/2014 What Is Your Relationship Status? Information not available 08/01/2020 Do You Have Smoke And Carbon Monoxide Detectors In Your Home? Yes Information not available 04/18/2021 Are You Passively Exposed To Smoke? No Information no t available 04/18/2021 Do You Or Have You Ever Used Smokeless Tobacco? Never Used Smokeless Tobacco Information not available 03/30/2020 General Stress Level Low Information not available 03/30/2020 Do You Feel Stressed (tense, Restless, Nervous, Or Anxious, Or Unable To Sleep At Night)? [id number] Information not available 08/24/2021 Do You Use Any Illicit Or Recreational Drugs? No Information not available 08/01/2020 Has Tobacco Cessation Counseling Been Provided? No Information not available 04/18/2021 On What Date Was Tobacco Cessation Counseling Provided? 08/24/2021 Information not available 08/24/2021 Do You Or Have You Ever Used Any Other Forms Of Tobacco Or Nicotine? No Information not available 04/18/2021 Sex: Unknown Functional Status Question Answer Note LastModified by Organization D etails LastModified Time Are you able to care for yourself? Yes Information n ot available 08/01/2020 Mental Status None recorded. Family History Relationship Description Onset Age of this Age Resolved Age Notes LastModified by Organization Details LastModified Time Maternal Grandmother Malignant tumor of breast other cancer s also [email or web address] Not available 04/07/2015 10:31:13 Medical History Condition Response Coronary Artery Disease N Other N Atrial Fibrillation N High Blood Pressure Y Thyroid Problems N Kidney or Bladder Problems N Depression N COPD N Blood Clots N GI Problems N Skin Problems N Eating Disorder N Anemia N Heart Attack (AK) N Diabetes N Anxiety Disorder N Muscle, Joint, or Bone Problems N Seizures/Epilepsy N Acid Reflux (GERD) N Cancer N Stroke N Allergies N Asthma N ADHD N Substance Abuse N High Cholesterol N Hepatitis N Liver Disease N Schizophrenia N Headaches N Hypertension Y Osteoporosis N Heart Failure N Gynecological History Statement/Question Response Date of Last Mammogram 05/28/2017 Date of LMP 03/11/2017 Menses Monthly N Date of Last Pap Smear 01/18/2019 Duration of Flow (days) 7 Age at Menarche 16 Current Control Method Tubal Ligat ion Most Recent Mammogram 01/18/2019 Age at First Child 23 LMP Definite Obstetrics History GPAL:G 2 P 2 0 0 2 Type Value Full Term 2 Living 2 Total 2 Immunizations Vaccine Type Date Status Note Provider Nam e and Address Organization Details Recorded Time Influenza, split virus, quadrivalent, preservative 9 completed Not Available [facility] 06/06/2019 02:46:43 Influenza, split virus, quadrivalent, preservative 0 completed April Valverde MA [facility], [place] - [facility] 03/30/2020 11:54:22 Past Encounters Encounter ID Performer Location Encounter Start Date Encounter Closed Date Diagnosis/Indication Diagnosis SNOMED-CT Code Diagnosis ICD10 Code Diagnosis Note [id number] [facility] [address] [place] [address] 07/01/2014 10:33:54 07/01/2014 11:12:38 Essential hypertension 93217924 [id number] Teresa Goldberg MA [facility] [address] [place] [address] 07/07/2014 15:00:31 07/07/2014 15:24:35 Essential hypertension 86140467 [id number] [facility] ([facility] [address] [facility] [address] [place] [address] 11/04/2014 09:50:06 11/04/2014 12:13:56 Gynecologic examination 49035199 Screening for malignant neoplasm of breast 128125004 [facility] 756807016 [id number] [facility] [address] [place] [address] 01/07/2015 14:57:25 01/10/2015 09:39:25 Obesity 313681718 [id number] Lou Estrada MA [facility] [address] [place] [address] 02/03/2015 11:32:18 02/03/2015 12:12:11 Obesity 004036689 [id number] Carlota Sheilaray [facility] [address] [place] [address] 03/03/2015 10:45:19 03/03/2015 11:13:31 Obesity 255712566 E66.9 Essential hypertension 11574404 I10 [id number] RAMILA [facility] [address] [place] [address] 04/07/2015 10:30:03 04/07/2015 11:09:59 Obesity 156344706 E66.9 [id number] RAMILA Jacob [address] [place] [address] 06/18/2016 09:57:50 06/18/2016 11:36:57 Hyperglycemia 35558122 R73.9 Morbid obesity 918397547 E66.01 [id number] RAMILA Jacob [address] [place] [address] 07/11/2016 17:31:50 07/11/2016 18:43:01 Morbid obesity 710257903 E66.01 Essential hypertension 82772556 I10 Hypothyroidism 65100816 E03.9 [id number] David Quiñonez PA-C [facility] [address] [place] [address] 08/21/2016 18:21:57 08/22/2016 17:32:13 Type 2 diabetes mellitus 38723272 E11.9 Hypothyroidism 70883908 E03.9 [id number] David Quiñonez PA-C [facility] [address] [place] [address] 10/09/2016 19:16:30 10/09/2016 19:44:35 Essential hypertension 23583368 I10 Hypothyroidism 91914247 E03.9 [id number] Criss Mccabe MA [facility] [address] [place] [address] 10/17/2016 14:28:16 10/17/2016 16:43:31 Contact dermatitis caused by urushiol from [facility][note 3] ever 164870307 L25.5 [id number] Mare Hernandez [facility] [address] [place] [address] 04/03/2017 09:01:22 04/03/2017 11:17:39 Screening mammography 25886004 Z12.31 Obesity 840922365 E66.9 Morbid obesity 056097671 E66.01 Gynecologi c examination 84205771 Z01.378 [id number] David Quiñonez PA-C [facility] [address] [place] [address] 07/12/2017 10:59:47 07/12/2017 12:09:20 Essential hypertension 82102925 I10 Hidradenit is suppurativa 80559330 L73.2 Hypothyroidism 48085552 E03.9 [id number] MD [facility] ([facility]) [address] [facility] [address] [place] [address] 09/09/2017 13:47:49 09/09/2017 16:54:01 Body mass index 40+ - severely obese 567989818 Z68.41 Irregular periods 702184 07 N92.6 [id number] MD Pierre Sanders 14 OB [address] [facility] [address] [place] [address] 12/10/2017 16:19:47 12/12/2017 15:40:59 Gynecologic examination 73052212 Z01.419 Irregular periods 284561 07 N92.6 [id number] Criss Mccabe MA [facility] [address] [place] [address] 05/27/2018 18:20:50 05/27/2018 19:15:18 Essential hypertension 33966345 I10 [id number] David Quiñonez PA-C [facility] [address] [place] [address] 12/23/2018 17:52:28 12/24/2018 14:56:45 Essential hypertension 53061764 I10 Hypothyroidism 16466384 E00.0 [id number] David Quiñonez PA-C [facility] [address] [place] [address] 02/17/2019 18:51:36 02/17/2019 19:42:24 Administration of influenza vaccine 79874773 Z23 Dyspnea on exertion 6084 5006 R06.09 [id number] David Quiñonez PA-C [facility] [address] [place] [address] 09/08/2019 18:14:20 09/09/2019 13:43:38 Benign paroxysmal positional vertigo 648825688 H81.13 Morbid obesity 169717441 E66.01 [id number] David Quiñonez PA-C [facility] [address] [place] [address] 03/30/2020 10:49:30 03/30/2020 12:22:38 Essential hypertension 21155604 I10 Herpes simplex 25236377 B00.89 Administra tion of influenza vaccine 55193822 Z23 Obstructiv e sleep apnea syndrome 41161875 G47.33 [id number] RAMILA [facility] [address] [place] [address] 08/01/2020 09:59:30 08/02/2020 15:51:56 Essential hypertension 60476735 I10 Anxiety 86955360 F41.1 Generalize d anxiety disorder 72410956 F41.1 [id number] RAMILA [facility] [address] [place] [address] 04/18/2021 17:39:27 04/18/2021 18:54:53 Essential hypertension 28796703 I10 Generalize d anxiety disorder 37386378 F41.1 Chronic depression 77026 0009 F34.1 cont and increase buproprion Adult heal th examination 662347218 Z00.00 [id number] David Quiñonez PA-C [facility] [address] [place] [address] 08/24/2021 15:44:27 08/24/2021 16:19:45 Screening mammography 20378661 Z12.31 Sore nostril 841301652 J 34.89 Health Concerns Section Related Observation LastModified by Organization Detai ls LastModified Time None Recorded Concern Status LastModified by Organization Details LastModified Time None Recorded Advance Directives Directive None Recorded Payers Encounter Date Sequence Insurance Name Policy Number Policy Nathan Covered Member ID Nathan Member ID Guarantor Name 09/08/2019 1 [employer] - CHOICE (POS II) [id number] Georgina Eardley [id number] Georgina Eardley 03/30/2020 1 [employer] - CHOICE ([place] II) [id number] Georgina Eardley [id number] Georgina Eardley 08/01/2020 1 [employer] - CHOICE ([place] II) [id number] Georgina Eardley [id number] Georgina Eardley 04/18/2021 1 [facility] Georgina L Eardley [id number] Georgina Eardley 08/24/2021 1 [facility] Georgina L Eardley [id number] Georgina Eardley Notes Date Note Type Note Provider Name and Address Organization Details Recorded Time 09/08/2019 text/html rt arm with LROM due to pain when raising past midline...as she is sitting at work she will be feeling numbness and tingling that she is able to walk off.....did not start cpap...does describe breathlessness with activity...also gets vertigo that will adjust with just waiting it out... David Quiñonez PA-C Attn: [address] [place], [address], [facility] 09/08/2019 19:01:45 03/30/2020 text/html Georgina Eardley is a 49 y/o female with PMHx of hypothyroidism, HTN, obesity who presents to clinic today for check up and notes she is having progressive worsening swelling of her legs & ankles over the past 2 years. She notes that her left leg & ankle is worse than her right. She notes she upped her own Furosemide in January to taking 1.5 dose, based on the recommendation of her friend, who si a RN. She reports since upping her dose, her swelling has improved. 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 She states that at the end of the day, her swelling is worse. Patient notes she has had a sleep study performed in the past approximately 1.5-2 years ago at [facility] and didn't want to pay for the machine as it was too expensive. David Quiñonez PA-C Attn: [address] [place], [address], [facility] 03/30/2020 11:33:45 08/01/2020 text/html discuss anxiety lot going on with her mom...wellbutrin helped... David Quiñonez PA-C Attn: [address] [place], [address], [facility] 08/01/2020 11:59:00 08/24/2021 text/html here today becau se of something inside nostrils...painful like a pimple...had nosebleeds and scabs...April.. David Quiñonez PA-C Attn: [address] [place], [address], [facility] 08/24/2021 16:02:42 OBGyn Episode Ob Episode Information Episode Created Date Number of Fetuses Patient Bloodtype Patient rh Status Prepregnancy Weight lbs Domestic Partner Domestic Partner Phone Father Name Inspector Of Weights And Measures Status 04/03/20 17 1 CLOSED Fetus Data First Name Last Name Admitted to NICU Weight (g) Sex Living Outcome Pediatric Complications Fetus ID Race Codes Race Delivery Type 3685.43 5 [id number] Vaginal Jose Calculation Initial Jose Date Initial Exam Date Initial Exam Provider Initial Ultrasound Date Last Menstrual Period Date Ultra Sound Weeks Gestation 0 Eighteen To Twenty Week Jose Update Ultra Sound Date Fundal Height At Umbil Quickening Date Ultra Sound Latest Weeks Gestation Final Jose Confirmed By Final Jose Confirmed Date Final Jose Date Ultra Sound Latest Days Gestation 0 0 Menstrual History Last Menstrual Date Menses Monthly On Bcp Conception Prior Menses Frequency Hcg Plus Date Menarche Onset Age Delivery Information Delivery Date Delivery Type Labor Anesthesia Weeks Gestation Incision Type Labor Labor Length Hrs Delivered By Post Complications Tubal Sterilization Discharge Date Comments 9 [facility] idural 35 15 Discharge Information Feeding Method Contraceptive Method Maternal HG B and HCT Levels Ob Episode Information Episode Created Date Number of Fetuses Patient Bloodtype Patient rh Status Prepregnancy Weight lbs Domestic Partner Domestic Partner Phone Father Name Inspector Of Weights And Measures Status 04/03/20 17 1 CLOSED Fetus Data First Name Last Name Admitted to NICU Weight (g) Sex Living Outcome Pediatric Complications Fetus ID Race Codes Race Delivery Type 3656.85 [id number] Vaginal Jose Calculation Initial Jose Date Initial Exam Date Initial Exam Provider Initial Ultrasound Date Last Menstrual Period Date Ultra Sound Weeks Gestation 0 Eighteen To Twenty Week Jose Update Ultra Sound Date Fundal Height At Umbil Quickening Date Ultra Sound Latest Weeks Gestation Final Jose Confirmed By Final Jose Confirmed Date Final Jose Date Ultra Sound Latest Days Gestation 0 0 Menstrual History Last Menstrual Date Menses Monthly On Bcp Conception Prior Menses Frequency Hcg Plus Date Menarche Onset Age Delivery Information Delivery Date Delivery Type Labor Anesthesia Weeks Gestation Incision Type Labor Labor Length Hrs Delivered By Post Complications Tubal Sterilization Discharge Date Comments 5 [facility] idural 36 17 Discharge Information Feeding Method Contraceptive Method Maternal HG B and HCT Levels
--- OUTSIDE RECORDS SUMMARY | 2024-09-12 17:15 | XMS_ITS ---
Author Organization [facility] Address [address] [place] [address] Phone Care Team Providers Care Production Associate Name Role Phone RAS GRACE MD Primary Care Provider Plan of Treatment No Plan of Treatment Recorded Assessments Includes: Assessments for all patient encounters No Assessments Recorded Medical Equipment - Implanted Devices Includes: Current and historical Devices No Medical Equipment Recorded Medications Administered Includes: Administered Medications in patient's chart No Administered Medications Recorded Results Includes: Results from 09/13/2023 through 09/12/2024 No Results Recorded For Specified Dates History of Present Illness History of Present Illness not supported for this document type No History of Present Illness Recorded Social History No Social History Recorded - Smoking Status Unknown Medical History Includes: Medical History in patient's chart No Medical History Recorded Family History Includes: Family History in patient's chart No Family History Recorded Review of Systems Review of Systems not supported for this document type No Review of Systems Recorded Mental Status No Mental Status Recorded Functional Status No Functional Status Recorded Physical Exam Physical Exam not supported for this document type No Physical Exam Recorded Clinical Notes Includes: Signed Clinical Notes starting from 06/08/2022 No Clinical Notes Recorded
--- OUTSIDE RECORDS SUMMARY | 2024-09-12 17:15 | XMS_ITS ---
Care Plan - [facility] Created on: September 12, 2024 CURTIS COLLINS : 1970 Sex: Female Author Organization [facility] Address [address] [place] [address] Phone Care Team Providers Care School Guidance Counselor Name Role Phone RAS GRACE MD Primary Care Provider
--- OUTSIDE RECORDS SUMMARY | 2024-09-12 17:15 | XMS_ITS | Clinical Summary ---
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 This disclosure is being madepursuant to the Care Everywhere program and may not contain all information available regarding this patient. Last updated 18.[facility] [employer] Allergies Active Allergy Reactions Criticality Noted Date Comments Latex Itching,Rash,Swelling Medium 06/11/2022 Medications * Be aware that medications may not be up to date on this document. Alwaysverify current medications with the patient. albuterol HFA (Proventil; Ventolin; Proair) 108 (90 Base) MCG/ACT inhaler Inhale 2 (two) puffs by mouth every 6 hours as needed 12/06/2022 Active buPROPion SR 12hr (Wellbutrin SR) 200 MG tablet TAKE 1 TABLET (200 MG TOTAL) BY MOUTH TWO (2) (TWO) TIMES a DAY 03/28/2023 Active acyclovir (Zovirax) 800 MG tablet Take 1 (one) tablet by mouth 4 times daily Active valACYclovir (Valtrex) 1 GM tablet Take 2 tabs (2000 mg) 2 times a days for 1 day. 01/24/2023 Active atenolol (Tenormin) 50 MG tablet Take 1 (one) tablet by mouth once daily 05/24/2022 Active furosemide (Lasix) 40 MG tablet Take 1 (one) tablet by mouth once daily 05/24/2022 Active levothyroxine (Synthroid) 75 MCG tablet 06/15/2023 Active Active Problems Problem Noted Date Diagnosed Date Reactive airway disease with wheezing 12/06/2022 06/17/2023 Overview (06/17/2023): Last Assessment & Plan: Using albuterol nebs as needed. States she uses albuterol 1-2 times per month. Discussed need for follow up if requiring albuterol more regularly, will plan to start daily ICS. Encounter for screening colonoscopy 08/30/2022 06/17/2023 Morbid obesity with BMI of 40.0-44.9, adult 07/1906/17/2023 Overview (06/17/2023): Last Assessment & Plan: Weight is down almost 15 lbs with use of phentermine, denies any medication side effects. Will continue to monitor. Anxiety and depression 07/05/2022 Overview (06/17/2023): Last Assessment & Plan: Moods are stable; continue bupropion. Will continue to monitor. Encounter for screening for lipid disorder 11/0106/17/2023 Encounter to establish care with new doctor 10/1806/17/2023 Overview (06/17/2023): Last Assessment & Plan: Preventive exam; reviewed recommended preventive screenings and vaccinations. Encourage annual flu vaccine. Wear sunscreen/protective clothing when outdoors. Hypertension, essential 11/01/2021 06/17/19 24 Overview (06/17/2023): Last Assessment & Plan: BP stable; discussed lasiks scheduling and side effects. No changes made today. Hypothyroidism 11/01/2021 06/17/2023 Overview (06/17/2023): Last Assessment & Plan: Levothyroxine 75 mcg daily. Will check TSH/T4 and make changes as needed. Lab Results Component Value Date TSH 2.66 06/26/2022 TSH 2.14 10/31/2021 Leg swelling 11/01/2021 06/17/2023 Overview (06/17/2023): Last Assessment & Plan: Not a problem during winter months. Discussed using furosemide as needed or decreasing to twice weekly. BRIDGETTE (obstructive sleep apnea) 11/01/2021 Overview (06/17/2023): Last Assessment & Plan: Sleep study completed several years ago, no results available. Recommend repeat sleep study given weight change of approximately 30 lbs. 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 Tinnitus of both ears 11/01/2021 06/17/2023 Overview (06/17/2023): Last Assessment & Plan: No abnormal findings on exam. Patient to trial nasal steroid. Given referral to ENT. Tonsillith 11/01/2021 06/17/2023 Overview (06/17/2023): Last Assessment & Plan: Encouraged to treat allergy symptoms. No evidence of infection. Recommended salt water gargles. Morbid (severe) obesity due to excess calories 0 10/23/2021 06/17/2023 Overview (06/17/2023): Last Assessment & Plan: Continues diet and exercise efforts. Cutaneous skin tags 08/30/2017 06/17/2023 Epidermoid cyst 08/30/2017 06/17/2023 Spider veins of both lower extremities 8 06/17/2023 Right axillary hidradenitis 07/19/201705/21 Immunizations Immunization Administration Dates Next Due INFLUENZA VACCINE, TRIV. (AF LURIA, FLUZONE TRIVALENT; 6MO+) (IIV3) 02/23/2014 FLU VACCINE QUAD IIV4 SPLIT 0.25 ML IM 0,02/17/2019 INFLUENZA VACCINE 02/17/2021 Social History Tobacco Use Types Packs/Day Years Used Date Smoking Tobacco: Never Smokeless Tobacco: Never Alcohol Use Standard Drinks/Week Comments Never 0 (1 standard drink = 0.6 oz pur e alcohol) Comments Unknown Sex and Gender Information Value Date Recorded Sex Assigned at Not on file Legal Sex Female 4:08 AM CDT Gender Identity Not on file Sexual Orientation Not on file Last Filed Vital Signs Vital Sign Reading Time Taken Comments Blood Pressure - - Pulse - - Temperature - - Respiratory Rate - - Oxygen Saturation - - Inhaled Oxygen Concentration - - Weight 108.9 kg (240 lb) 06/17/2023 12:58 PM 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 Height 157.5 cm (5' 2 ) 06/17/2023 12:58 PM 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 Body Mass Index 43.9 06/17/2023 12:58 PM 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 Plan of Treatment Health Maintenance Due Date Last Done Comments COLOGUARD (AGES 45-75) - COLON CA SCREENING 1972 COLON MONITORING 1972 COLONOSCOPY - COLON CA SCREENING 1972 CT COLONOGRAPHY - COLON CA SCREENING 1972 Colorectal Cancer Screening 1972 FIT - COLON CA SCREENING 1972 FLEX SIG - COLON CA SCREENING 1972 LIPID TESTING 1972 PAP SMEAR 1972 HIV SCREENING 1987 HEPATITIS C SCREENING 05/13/1990 DTAP/TDAP/TD VACCINES (1 - Tdap) 1991 HEPATITIS B VACCINE (1 of 3 - 19+ 3-dose series) 1991 PNEUMOCOCCAL VACCINE 50+ (1 of 1 - PCV) 2022 ZOSTER VACCINE (1 of 2) 2022 SCREENING FOR DIABETES 06/17/2023 COVID-19 VACCINE ( season) 2024 DEPRESSION SCREENING 05/20/2024 MAMMOGRAM 11/30/2024 11/30/2022, 10/18, 07/01/2018, Additional history exists INFLUENZA VACCINE (Season Ended) 2025 02/17/2021, 03/30/2020, 02/17/2019, Additional history exists HIB VACCINE Aged Out No longer eligi ble based on patient's age to complete this topic HPV VACCINE Aged Out No longer eligi ble based on patient's age to complete this topic MENINGOCOCCAL (Group B) VACCINE SHARED DECISION-MAKING Aged Out No longer eligible based on patient's age to complete this topic MENINGOCOCCAL GROUPS A/C/Y/W VACCINE Aged Out No longer eligible based on patient's age to complete this topic Insurance [facility] Address: [facility] [id number] [place] [address] 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
--- OUTSIDE RECORDS SUMMARY | 2024-09-12 17:15 | XMS_ITS | Clinical Summary ---
Author Organization [facility] Address [address] [place] [address] Care Team Providers Care Mix Chemist Name Role Phone Michael Lorenzana MD Primary Care Provider [phone] Allergies Active Allergy Reactions Criticality Noted Date Comments Latex Itching,Rash,Swelling Medium 06/11/2022 Medications albuterol HFA (PROVENTIL HFA,VENTOLIN HFA,PROAIR HFA) 90 mcg/actuation inhalerIndication s:Mild intermittent reactive airway disease with wheezing without complication Inhale 2 puffs every 6 (six) hours as needed for wheezing 1 each 1 3 Active mupirocin (BACTROBAN) 2 % ointment Apply topically 3 (three) times a day Apply to nostril opening 22 g 4 Active butalbital-acetam inophen-caffeine (ESGIC) 50-325-40 mg per tablet Take 1 tablet by mouth every 4 (four) hours as needed for headaches 30 tablet 1 4 Active triamcinolone (KENALOG) 0.1 % cream Apply to affected area 1-2 times daily as needed. Avoid face and groin. 80 g 5 4 12/19/19 25 Active valACYclovir (VALTREX) 1 gram tablet Take 2 tabs (2000 mg) 2 times a days for 1 day. 10 tablet 5 4 Active levothyroxine (SYNTHROID) 75 mcg tablet TAKE 1 TABLET (75 MCG TOTAL) BY MOUTH INSPECTOR AND SORTER BEFORE BREAKFAST 90 tablet 2 4 Active ergocalciferol (VITAMIN D) 50,000 unit capsule 4 Active buPROPion SR (WELLBUTRIN SR) 200 mg 12 hr tablet Take 1 tablet (200 mg total) by mouth 2 (two) times a day 180 tablet 3 5 Active atenoloL (TENORMIN) 50 mg tablet TAKE 1 TABLET (50 MG TOTAL) BY MOUTH DAILY 90 tablet 2 5 Active furosemide (LASIX) 40 mg tablet TAKE 1 TABLET (40 MG TOTAL) BY MOUTH DAILY 90 tablet 3 5 Active phentermine 15 mg capsule Take 1 capsule (15 mg total) by mouth every morning 30 capsule 5 10/12/19 25 Active Active Problems Problem Noted Date Diagnosed Date Scalp laceration 03/31/2024 Assessment & Plan (03/31/2024 9:22 AM PRODUCTION TROUBLESHOOTER): Healing well, jerson removed. Laceration is well approximated, no drainage. No surrounding erythema. Instructed patient to apply Aquaphor daily. Gastroenteritis 03/31/2024 Assessment & Plan (03/31/2024 9:22 AM PRODUCTION TROUBLESHOOTER): Resolving; no longer having any abdominal cramping or vomiting. Continue to follow bland diet. Follow-up as needed. Physical exam, annual 06/20/2023 Assessment & Plan (06/23/2024 12:36 PM PRODUCTION TROUBLESHOOTER): Annual exam; screenings and vaccinations. She is up-to-date on her colonoscopy as well as mammogram. Following with home mission worker annually. Assessment & Plan (06/20/2023 12:39 PM PRODUCTION TROUBLESHOOTER): Preventive exam; reviewed recommended preventive screenings and vaccinations. -scheduled for colonoscopy this summer -up-to-date on mammogram Prediabetes 06/20/2023 Assessment & Plan (06/23/2024 12:35 PM PRODUCTION TROUBLESHOOTER): Lab Results Component Value Date HGBA1C 5.8 (H) 10/25/2023 HGBA1C 6.1 (H) 06/14/2023 HGBA1C 5.8 (H) 06/26/2022 Assessment & Plan (06/20/2023 12:48 PM PRODUCTION TROUBLESHOOTER): Lab Results Component Value Date HGBA1C 6.1 (H) 06/14/2023 HGBA1C 5.8 (H) 06/26/2022 Fasting glucose < 100. Reviewed needed diet changes and treatment options. Will continue to monitor closely. Reactive airway disease with wheezing 12/06/2022 Assessment & Plan (12/06/2022 8:54 AM CDT): Using albuterol nebs as needed. States she uses albuterol 1-2 times per month. Discussed need for follow up if requiring albuterol more regularly, will plan to start daily ICS. Encounter for screening colonoscopy 08/30/2022 Morbid obesity with BMI of 45.0-49.9, adult 07/19 Assessment & Plan (06/23/2024 12:39 PM PRODUCTION TROUBLESHOOTER): Encouraged patient to focus on diet in addition to exercise. Limiting portion sizes as well as following lower carb diet. Assessment & Plan (06/20/2023 12:42 PM PRODUCTION TROUBLESHOOTER): Patient feels she developed tolerance to phentermine, discussed holding medication for a few weeks or taking breaks to reduce tolerance. She admits that she has not working on diet like she should be at this time. Has previously seen plywood layup line core layer in his wear of need to eat several small meals throughout the day, also aware of protein, carbohydrate and caloric recommendations. Will continue to monitor Assessment & Plan (12/06/2022 8:54 AM CDT): Weight is down almost 15 lbs with use of phentermine, denies any medication side effects. Will continue to monitor. Assessment & Plan (08/06/2022 4:54 PM CDT): Reviewed medication, adverse effects, and importance of monitoring blood pressure/heart rate routinely. Discussed risks versus benefits use of stimulant medication. Discussed policy of monthly weigh-ins, expected weight loss of at least 5% over 12 weeks, and follow-up in 3 months. EKG unchanged from previous Anxiety and depression 07/05/2022 Assessment & Plan (06/23/2024 12:38 PM PRODUCTION TROUBLESHOOTER): Moods improved with bupropion. Continue to monitor, patient to reach out with any changes gardner. We discussed continuing current dosage for now, can consider reducing dosage in future. Recommended continuing medication for at least 6-12 months following remission. Assessment & Plan (06/20/2023 12:40 PM PRODUCTION TROUBLESHOOTER): Moods are stable, feels she is benefitted addition of CBD. Discussion regarding tapering bupropion verse continued monitoring for now. Patient will continue bupropion at this time. Can consider reducing dosage from 400 mg daily to 200 mg daily. Assessment & Plan (12/06/2022 8:54 AM CDT): Moods are stable; continue bupropion. Will continue to monitor. Assessment & Plan (07/05/2022 12:38 PM PRODUCTION TROUBLESHOOTER): Stable; patient doing well with bupropion 200 mg daily. We discussed changing medication to 150 mg twice daily, patient prefers to continue to monitor for now. Hypothyroidism 11/01/2021 Assessment & Plan (06/23/2024 12:36 PM PRODUCTION TROUBLESHOOTER): Levothyroxine 75 mcg daily. Will check TSH/T4 and make changes as needed. Lab Results Component Value Date TSH 1.40 06/16/2024 TSH 2.12 10/25/2023 TSH 3.89 06/14/2023 Assessment & Plan (06/20/2023 12:40 PM PRODUCTION TROUBLESHOOTER): Levothyroxine 75 mcg daily. Will check TSH/T4 and make changes as needed. Lab Results Component Value Date TSH 3.89 06/14/2023 TSH 2.66 06/26/2022 TSH 2.14 10/31/2021 Assessment & Plan (12/06/2022 8:53 AM CDT): Levothyroxine 75 mcg daily. Will check TSH/T4 and make changes as needed. Lab Results Component Value Date TSH 2.66 06/26/2022 TSH 2.14 10/31/2021 Assessment & Plan (07/05/2022 12:35 PM PRODUCTION TROUBLESHOOTER): Stable; continue Levothyroxine 75 mcg daily. Lab Results Component Value Date TSH 2.66 06/26/2022 TSH 2.14 10/31/2021 Assessment & Plan (04/04/2022 9:37 AM PRODUCTION TROUBLESHOOTER): Levothyroxine 75 mcg daily. Will check TSH/T4 and make changes as needed. Lab Results Component Value Date TSH 2.14 10/31/2021 Assessment & Plan (11/01/2021 12:48 PM CDT): Levothyroxine 75 mcg daily. Will check TSH/T4 and make changes as needed. Lab Results Component Value Date TSH 2.14 10/31/2021 Tonsillith 11/01/2021 Assessment & Plan (11/01/2021 12:48 PM CDT): Encouraged to treat allergy symptoms. No evidence of infection. Recommended salt water gargles. Tinnitus of both ears 11/01/2021 Assessment & Plan (11/01/2021 12:53 PM CDT): No abnormal findings on exam. Patient to trial nasal steroid. Given referral to ENT. Hypertension, essential 11/01/2021 Assessment & Plan (12/06/2022 8:53 AM CDT): BP stable; discussed lasiks scheduling and side effects. No changes made today. Assessment & Plan (08/06/2022 4:55 PM CDT): Blood pressure well controlled, no changes in current regimen. Assessment & Plan (07/05/2022 12:34 PM PRODUCTION TROUBLESHOOTER): Condition is stable, will decrease furosemide to as needed. Reviewed labs today with patient.Discussed/ordered labs, encouraged healthy, low carbohydrate lifestyle and at least 150min/week of exercise, continue on atenolol. Assessment & Plan (04/04/2022 9:31 AM PRODUCTION TROUBLESHOOTER): Condition is stable Discussed/ordered labs, encouraged healthy, low carbohydrate lifestyle and at least 150min/week of exercise, continue on current regimen. Assessment & Plan (11/01/2021 1:11 PM CDT): BP well controlled on current regimen, no changes made today. Discussed heart healthy diet, sodium <2400 mg/day. Encounter to establish care with new doctor 10/18 Assessment & Plan (11/01/2021 12:50 PM CDT): Preventive exam; reviewed recommended preventive screenings and vaccinations. Encourage annual flu vaccine. Wear sunscreen/protective clothing when outdoors. BRIDGETTE (obstructive sleep apnea) 11/01/2021 Assessment & Plan (11/01/2021 12:58 PM CDT): Sleep study completed several years ago, no results available. Recommend repeat sleep study given weight change of approximately 30 lbs. We discussed how untreated BRIDGETTE can cause unrefreshing sleep and excessive daytime sleepiness, as well as how it contributes over the terminal clerk to cardiovascular risk, recalcitrant hypertension, and stroke risk. Encounter for screening for lipid disorder 11/01 Leg swelling 11/01/2021 Assessment & Plan (07/05/2022 11:57 AM PRODUCTION TROUBLESHOOTER): Not a problem during winter months. Discussed using furosemide as needed or decreasing to twice weekly. Assessment & Plan (11/01/2021 1:44 PM CDT): No swelling today. Discussed ankle pumps, increased activity, lowering dietary sodium and elevating extremities throughout the day. Will continue to monitor. Resolved Problems Problem Noted Date Diagnosed Date Resolved Date Morbid (severe) obesity due to excess calories 10/23/2021 06/20/2023 Assessment & Plan (07/05/2022 12:36 PM PRODUCTION TROUBLESHOOTER): Continues diet and exercise efforts. Assessment & Plan (04/04/2022 9:31 AM PRODUCTION TROUBLESHOOTER): Encouraged her to check with insurance for weight loss medication coverage. Not a candidate for stimulants weight loss medications. Continues diet and exercise efforts, discussed TDEE. Offered referral to weight loss clinic at [facility], defers at this time. Patient would like to trial mounjaro with use of coupon. Denies any personal or family history of MTC. Reviewed medication SE's and scheduling. Return to clinic in 3 months. Assessment & Plan (11/01/2021 12:49 PM CDT): Discussed healthy diet and importance of regular physical activity. Body mass index 40.0-44.9, adult ([facility]) 10/23/2021 08/06/2022 Assessment & Plan (11/01/2021 12:49 PM CDT): Encounters Date Type Department Care Team Description 07/06/2024 Orders Only [facility] [address] [address] Michael Lorenzana MD 07/06/2024 Telephone [facility] [address] [address] Michael Lorenzana MD 06/23/2024 11:00 AM PRODUCTION TROUBLESHOOTER Office Visit [facility] [address] [address] Zeenat Hernandez NP Physical exam, annual (Primary Dx); Hypothyroidism, unspecified type; Anxiety and depression; Prediabetes; Encounter for screening for lipid disorder; Morbid obesity with BMI of 45.0-49.9, adult ([facility]) 06/16/2024 11:15 AM PRODUCTION TROUBLESHOOTER Lab [facility] [address] [place] [address] Encounter for screening for lipid disorder; Hypothyroidism, unspecified type from Last 3 Months Immunizations Immunization Administration Dates Next Due Influenza, Quadrivalent, Spl it, Intramuscular 03/30/2020,02/17/2019 Influenza, Trivalent, IM (MDV) 02/23/2014 Influenza, Unspecified 03/31/2024(Deferr ed: Patient Refused),06/20/2023(Deferred: Patient Refused),02/17/2023(Deferred: Patient Refused),02/17/2023(Deferred: Patient Refused),04/04/2022(Deferred: Patient Refused),02/17/2022(Deferred: Patient Refused),02/17/2022(Deferred: Patient Refused),02/17/2022(Deferred: Patient Refused),05/20/2021(Deferred: Patient Refused),02/17/2021,01/18/2021(Deferre d: Patient Refused) Tdap 03/21/2024 Surgical History Surgery Date Site/Laterality Comments HYSTERECTOMY 05/20/2017 - 05/19/2018 COLONOSCOPY 11/29/2023 1st TUBAL LIGATION 10/14/98 Medical History Medical History Date Comments Hypertension Hypothyroidism Family History Medical History Relation Name Comments Alcohol abuse Brother Warren Seizures Brother Warren Obesity Maternal Grandmother Zuleima Smith COPD Mother Peri Colon polyps Mother Peri Heart failure Mother Peri Bone cancer Mother's Sister 1 alex Colon polyps Mother's Sister 1 alex Lung cancer Mother's Sister 2 Cancer Mother's Sister 3 Alex Diabetes Paternal Grandmother Zuleima Smith Heart failure Paternal Grandmother Zuleimamireille Smith Colon polyps Sister Ovarian cancer Neg Hx Thyroid cancer Neg Hx Relation Name Status Comments Brother Warren Maternal Grandmother Zuleima Smith Mother Peri Mother's Sister 1 alex Mother's Sister 2 Alive Mother's Sister 3 Alex Paternal Grandmother Zuleimamireille Smith Sister Social History Tobacco Use Types Packs/Day Years Used Date Smoking Tobacco: Never Cigarettes Passive Smoke Exposure: Past Smokeless Tobacco: Never Tobacco Cessation:Counseling Given: Not Answered AUDIT-C Answer Date Recorded Q1: How often do you have a drink containing alc ohol? 2-3 times a week 10/04/2021 Average Number of Drinks Not on file 022 Frequency of Binge Drinking Not on file 09/17 PHQ-2 Answer Date Recorded PHQ-2 Total Score (If total score is 3 or more points, staff should administer the PHQ-9) 0 06/23/2024 Personal Safety Answer Date Recorded Have you ever been in or are you currently in a harmful physical or emotional relationship or is someone making you feel afraid or unsafe? Denies 11/29/2023 Comments No Sex and Gender Information Value Date Recorded Sex Assigned at Not on file Legal Sex Female 5:47 AM PRODUCTION TROUBLESHOOTER Gender Identity Female 10/26/2022 9:08 AM CDT Sexual Orientation Straight 02/17/2024 9: 33 PM CDT Obstetrics History Para Term AB IAB SAB Ectopic Multiple Livin g Live Births 2 2 2 Date Outcome GA Total Labor Labor//3rd Weight Sex Type Anes PTL Mary A1 A5 Name Clin Term Term Last Filed Vital Signs Vital Sign Reading Time Taken Comments Blood Pressure 122/84 06/23/2024 10:41 AM PRODUCTION TROUBLESHOOTER Pulse 61 06/23/2024 10:41 AM PRODUCTION TROUBLESHOOTER Temperature 36.5 C (97.7 F) 06/23/2024 10:41 AM PRODUCTION TROUBLESHOOTER Respiratory Rate 16 06/23/2024 10:4 1 AM PRODUCTION TROUBLESHOOTER Oxygen Saturation 98% 06/23/2024 10: 41 AM PRODUCTION TROUBLESHOOTER Inhaled Oxygen Concentration - - Weight 120.6 kg (265 lb 12.8 oz) 2024 10:41 AM PRODUCTION TROUBLESHOOTER Height 157.5 cm (5' 2.01 ) 06/23/2024 1 0:41 AM PRODUCTION TROUBLESHOOTER Body Mass Index 48.6 06/23/2024 10:41 AM PRODUCTION TROUBLESHOOTER Plan of Treatment Health Maintenance Due Date Last Done Comments Hepatitis C Screening 1972 Hepatitis B Screening 1990 Zoster Vaccine (1 of 2) 2022 Influenza Vaccine (Season Ended) 2025 02/17/2021, 03/30/2020, 02/17/2019, Additional history exists Breast Cancer Screening-Mammogram 02/17/2025 02/18/2024, 11/30/2022, 11/03/2021, Additional history exists Depression Screening 06/23/2025 06/23/2024, 03/31/2024, 06/20/2023, Additional history exists Regular Well Visit/Exam 18-64 06/23/2025 06/23/2024, 06/20/2023, 10/23/2021 Colon Cancer Screening-Colonoscopy 11/28/2033 11/29/2023 DTaP/Tdap/Td Vaccine (2 - Td or Tdap) 03/21/2034 03/21/2024 Pneumococcal vaccine <65 Aged Out No longer eligible based on patient's age to complete this topic Procedures Procedure Name Priority Date/Time Associated Diagnosis Comments EGFR Routine 06/16/2024 11:15 AM PRODUCTION TROUBLESHOOTER Encounter for screening for lipid disorder DIFFERENTIAL AUTO Routine 06/16/2024 11: 15 AM PRODUCTION TROUBLESHOOTER Encounter for screening for lipid disorder T4, FREE Routine 06/16/2024 11:15 AM PRODUCTION TROUBLESHOOTER Hypothyroidism, unspecified type TSH Routine 06/16/2024 11:15 AM PRODUCTION TROUBLESHOOTER Hypothyroidism, unspecified type CBC WITH AUTO DIFFERENTIAL Routine 06/16/2024 11:15 AM PRODUCTION TROUBLESHOOTER Encounter for screening for lipid disorder COMPREHENSIVE METABOLIC PANEL Routine 06/16/2024 11:15 AM PRODUCTION TROUBLESHOOTER Encounter for screening for lipid disorder LIPID PANEL Routine 06/16/2024 11:15 AM PRODUCTION TROUBLESHOOTER Encounter for screening for lipid disorder SCREENING MAMMOGRAM BILATERAL W RODNEY Schedule Routine, Read Routine (OP Routine) 02/18/2024 8:40 AM CDT Screening mammogram, encounter for COLONOSCOPY 11/29/2023 9:02 AM CDT from Last 3 Months or Most Recently Relevant to Health Maintenance Results * eGFR (06/16/2024 11:15 AM PRODUCTION TROUBLESHOOTER) eGFR 84 >=60 mL/min/1. 73 m2 Comment: Interpretive Data Reference Interval Normal >/= 90 mL/min/1.73m2 Mildly decreased* 60 - 89 mL/min/1.73m2 Mildly to moderately decreased 45 - 59 mL/min/1.73m2 Moderately to severely decreased 30 - 44 mL/min/1.73m2 Severely decreased 15 - 29 mL/min/1.73m2 Kidney Failure < 15 mL/min/1.73m2 *Relative to young adult level Estimated glomerular filtration rate is determined by the 2020 CKD-EPI equation recommended by the National Kidney Foundation (A Unifying Approach to GFR Estimation: Recommendations of the NKF-ASK Task Force on Reassessing the Inclusion of Race in Diagnosing Kidney Disease, JASN 2020). The CKD-EPI equation should not be used for patients with unstable renal function and has not been validated in children and those over 70. Current interpretive data was last reviewed 2021. Testing performed by: [facility], [address] [place] [address], [id number] Blood 06/16/2024 11:1 5 AM PRODUCTION TROUBLESHOOTER 06/16/2024 6:53 PM PRODUCTION TROUBLESHOOTER Zeenat Hernandez NP LAB BLOOD ORDERABLES Final Result [facility] ([place]) 1 [facility] Department [place] [address] * Differential, auto (06/16/2024 11:15 AM PRODUCTION TROUBLESHOOTER) Neutrophil abs 4.2 1.5 - 6.5 K/cumm Comment:Testing performed by : [address], [address] Imm gran abs 0.0 0.0 - 0.1 K/cumm [facility] ([facility]) Comment:Testing performed by : [address], [address] Lymphocyte abs 1.7 0.8 - 3.3 K/cumm [facility] ([place]) Comment:Testing performed by : [address], [address] Monocyte abs 0.4 0.2 - 0.8 K/cumm [facility] ([place]) Comment:Testing performed by : [address], [address] Eosinophil abs 0.2 0.0 - 0.5 K/cumm [facility] ([place]) Comment:Testing performed by : [address], [address] Basophil abs 0.0 0.0 - 0.1 K/cumm [facility] ([place]) Comment:Testing performed by : [address] [address] Neutrophil pct 64.9 % [facility] ([place]) Comment: Interpretive Data Percent cell count reference ranges are not reported, since discordance with absolute values may lead to misinterpretation of CBC data. Current Interpretive Data was last revised on 2017. Testing performed by: [address] [address] Imm gran pct 0.3 % [facility] ([place]) Comment: Interpretive Data Percent cell count reference ranges are not reported, since discordance with absolute values may lead to misinterpretation of CBC data. Current Interpretive Data was last revised on 2017. Testing performed by: [address] [address] Lymphocyte pct 25.5 % [facility] ([facility]) Comment: Interpretive Data Percent cell count reference ranges are not reported, since discordance with absolute values may lead to misinterpretation of CBC data. Current Interpretive Data was last revised on 2017. Testing performed by: [address] [address] Monocyte pct 5.6 % [facility] ([place]) Comment: Interpretive Data Percent cell count reference ranges are not reported, since discordance with absolute values may lead to misinterpretation of CBC data. Current Interpretive Data was last revised on 2017. Testing performed by: [address] [address] Eosinophil pct 3.1 % [facility] ([facility]) Comment: Interpretive Data Percent cell count reference ranges are not reported, since discordance with absolute values may lead to misinterpretation of CBC data. Current Interpretive Data was last revised on 2017. Testing performed by: [address] [address] Basophil pct 0.6 % [facility] ([place]) Comment: Interpretive Data Percent cell count reference ranges are not reported, since discordance with absolute values may lead to misinterpretation of CBC data. Current Interpretive Data was last revised on 2017. Testing performed by: [address], [address] Blood 06/16/2024 11:1 5 AM PRODUCTION TROUBLESHOOTER 06/16/2024 6:31 PM PRODUCTION TROUBLESHOOTER Zeenat Hernandez EXTRUSION ENGINEER LAB BLOOD ORDERABLES Final Result [facility] ([place]) 1 [facility] Department [place] [address] * (ABNORMAL) CBC with auto differential (06/16/2024 11:15 AM PRODUCTION TROUBLESHOOTER) WBC 6.5 3.8 - 9.9 K/cumm Comment:Testing performed by : [address], [address] Hgb 14.4 11.9 - 15.5 g/dL [facility] ([place]) Comment:Testing performed by : [address], [address] Hct 45.3 35.6 - 45.5 % [facility] ([place]) Comment:Testing performed by : [address], [address] Plt 366 150 - 400 K/cumm [facility] ([place]) Comment:Testing performed by : [address], [address] MPV 10.3 9.1 - 12.3 fL [facility] ([place]) Comment:Testing performed by : [address], [address] RBC 4.89 3.90 - 5.20 M/cumm [facility] ([place]) Comment:Testing performed by : [address], [address] MCV 92.6 81.3 - 96.4 fL [facility] ([place]) Comment:Testing performed by : [address], [address] MCH 29.4 27.1 - 33.3 pg [facility] ([place]) Comment:Testing performed by : [address], [address] MCHC 31.8(L) 32.3 - 35.7 g/dL [facility] ([facility]) Comment:Testing performed by : [facility], [address] [place] [address], [id number] RDW CV 13.6 11.1 - 14.9 % [facility] ([place]) Comment:Testing performed by : [facility], [address] [place] [address], [address] RDW SD 46.5 35.7 - 48.1 fL [facility] ([place]) Comment:Testing performed by : [facility], [address] [place] [address], [address] NRBC abs 0.00 0.00 - 0.01 K/cumm [facility] ([facility]) Comment:Testing performed by : [facility], [address] [place] [address], [id number] Blood 06/16/2024 11:1 5 AM PRODUCTION TROUBLESHOOTER 06/16/2024 6:31 PM PRODUCTION TROUBLESHOOTER Zeenat Hernandez EXTRUSION ENGINEER LAB BLOOD ORDERABLES Final Result [facility] ([place]) 1 [facility] [place] [address] * TSH (06/16/2024 11:15 AM PRODUCTION TROUBLESHOOTER) Pathologist [facility] Thyroid Stimulating Hormone 1.40 0.30 - 4.20 mcIUnit/mL Comment:Testing performed by : [facility], [address] [place] [address], [id number] Blood 06/16/2024 11:1 5 AM PRODUCTION TROUBLESHOOTER 06/16/2024 6:31 PM PRODUCTION TROUBLESHOOTER Zeenat Hernandez EXTRUSION ENGINEER LAB BLOOD ORDERABLES Final Result [facility] ([place]) 1 [facility] [place] [address] * T4, free (06/16/2024 11:15 AM PRODUCTION TROUBLESHOOTER) Free T4 1.14 0.90 - 1.70 ng/dL Comment:Testing performed by : [facility], [address] [place] [place] [address]., [id number] Blood 06/16/2024 11:1 5 AM PRODUCTION TROUBLESHOOTER 06/16/2024 6:31 PM PRODUCTION TROUBLESHOOTER Zeenat Hernandez EXTRUSION ENGINEER LAB BLOOD ORDERABLES Final Result [facility] ([place]) 1 [facility] Department [place] [address] * (ABNORMAL) Lipid panel (06/16/2024 11:15 AM PRODUCTION TROUBLESHOOTER) Cholesterol 219(H) 30 - 199 mg/dL Comment: Interpretive Data Ages < or = 19 years Acceptable: <170 mg/dL Borderline high: 170-199 mg/dL High: >or= 200 mg/dL Ages > or = 20 years Desirable: <200 mg/dL Borderline high: 200-239 mg/dL High: >or= 240 mg/dL Literature References: 1. Expert Panel on Integrated Guidelines for Cardiovascular Health and Risk Reduction in Children and Adolescents. Pediatrics 2011;128:S213 2. NCEP Expert Panel. Circulation 2004;110:227 Current Interpretive Data was last revised on 2018. Testing performed by: [facility], [address] [place] [place] [address]., [id number] Triglycerides 166(H) <=149 mg/dL [facility] ([place]) Comment: Interpretive Data Ages < or = 9 years Acceptable: <75 mg/dL Borderline high: 75-99 mg/dL High: >or= 100 mg/dL Ages 10 to 20 years Acceptable: <90 mg/dL Borderline high: 90-129 mg/dL High: >or= 130 mg/dL Ages > or = 20 years Desirable: <150 mg/dL Borderline high: 150-199 mg/dL High: 200-499 mg/dL Very high: >or= 499 mg/dL Literature References: 1. Expert Panel on Integrated Guidelines for Cardiovascular Health and Risk Reduction in Children and Adolescents. Pediatrics 2011;128:S213 2. NCEP Expert Panel. Circulation 2004;110:227 Current Interpretive Data was last revised on 2018. Testing performed by: [facility], [address] [place] [address] [place]., [address] HDL 57 >=40 mg/dL [facility] ([place]ERRE) Comment: Interpretive Data Ages < or = 19 years Acceptable: >45 mg/dL Borderline low: 40-45 mg/dL Low: <40 mg/dL Ages > or = 20 years Desirable: >or= 60 mg/dL Low: <40 mg/dL Literature References: 1. Expert Panel on Integrated Guidelines for Cardiovascular Health and Risk Reduction in Children and Adolescents. Pediatrics 2011;128:S213 2. NCEP Expert Panel. Circulation 2004;110:227 Current Interpretive Data was last revised on 2018. Testing performed by: [facility], [address] [place] [place] [address]., [address] LDL, calculated 133(H) <=129 mg/dL [facility] ([place]ERRE) Comment: Interpretive Data Ages < or = 19 years Acceptable: <110 mg/dL Borderline high: 110-129 mg/dL High: >or= 130 mg/dL Ages > or = 20 years Optimal: <100 mg/dL Near optimal: 100-129 mg/dL Borderline high: 130-159 mg/dL High: >160 mg/dL Calculated using the Brannon LDL-C estimating equation. This equation was implemented on 2024. Prior to this date LDL-C was estimated using the Friedewald equation. Literature References: 1. Expert Panel on Integrated Guidelines for Cardiovascular Health and Risk Reduction in Children and Adolescents. Pediatrics 2011;128:S213 2. NCEP Expert Panel. Circulation 2004;110:227 3. Brannon Woods et al. SUZANNE Cardiol. 2019September 17;5(5):540-548. doi: 10.1001/[email or web address] Current Interpretive Data was last revised on 2024. Testing performed by: [facility], [address] [place] [place] [address]., [address] Non-HDL Cholesterol 162 mg/dL [facility] ([place]ERRE) Comment: Interpretive Data Ages < or = 19 years Acceptable: <120 mg/dL Borderline high: 120-144 mg/dL High: >145 mg/dL Ages > or = 20 years When triglycerides are >200 mg/dL, Non-HDL cholesterol is a secondary target of therapy with treatment goals that are 30 mg/dL greater than the LDL cholesterol target. Literature References: 1. Expert Panel on Integrated Guidelines for Cardiovascular Health and Risk Reduction in Children and Adolescents. Pediatrics 2011;128:S213 2. NCEP Expert Panel. Circulation 2004;110:227 Current Interpretive Data was last revised on 2018. Testing performed by: [facility], [address] [place] [place] [address]., [address] Chol/HDL ratio 4 [facility] ([place]) Comment:Testing performed by : [address], [address] Blood 06/16/2024 11:1 5 AM PRODUCTION TROUBLESHOOTER 06/16/2024 6:31 PM PRODUCTION TROUBLESHOOTER Zeenat Hernandez EXTRUSION ENGINEER LAB BLOOD ORDERABLES Final Result [facility] ([place]ERRE) 1 [facility] Department [place] [address] * Comprehensive metabolic panel (06/16/2024 11:15 AM PRODUCTION TROUBLESHOOTER) Sodium 140 135 - 145 mmol/L Comment:Testing performed by : [address], [address] Potassium, pl 3.8 3.3 - 4.9 mmol/L [facility] ([place]) Comment:Testing performed by : [address] [address] Chloride 102 97 - 110 mmol/L [facility] ([place]) Comment:Testing performed by : [address] [address] CO2 25 22 - 32 mmol/L [facility] ([place]) Comment:Testing performed by : [address], [address] Anion gap 13 2 - 15 mmol/L [facility] ([place]) Comment:Testing performed by : [address], [address] BUN 9 6 - 25 mg/dL [facility] ([place]) Comment:Testing performed by : [address], [address] Creatinine 0.84 0.60 - 1.10 mg/dL [facility] ([place]) Comment:Testing performed by : [address] [address] Glucose 107 70 - 199 mg/dL [facility] ([place]) Comment: Interpretive Data Fasting glucose >/= 126 mg/dl is diagnostic for diabetes. Fasting is defined as no caloric intake for at least 8 hours. Fasting glucose between 100 mg/dl to 125 mg/dl is diagnostic of prediabetes. In a patient with classic symptoms of hyperglycemia or hyperglycemic crisis, a random glucose >/= 200 mg/dl is diagnostic for diabetes. In the absence of unequivocal hyperglycemia, results should be confirmed by repeat testing. The classification and Diagnosis of Diabetes Diabetes Care 2021; 46: S19-S40. Current interpretive data was last revised 2022. Testing performed by: [address], [address] Calcium 9.2 8.5 - 10.3 mg/dL [facility] ([place]) Comment:Testing performed by : [address], [address] Bilirubin, total 0.3 0.1 - 1.2 mg/dL [facility] ([place]) Comment:Testing performed by : [address], [address] Protein, pl 7.6 6.5 - 8.5 g/dL [facility] ([place]) Comment:Testing performed by : [address], [address] Albumin 4.2 3.5 - 5.0 g/dL [facility] ([place]) Comment:Testing performed by : [address], [address] Alk phos 90 40 - 130 Units/L [facility] ([place]) Comment:Testing performed by : [address], [address] ALT 21 7 - 45 Units/L [facility] ([place]) Comment:Testing performed by : [address], [address] AST 28 10 - 45 Units/L [facility] ([place]) Comment:Testing performed by : [address], [address] Blood 06/16/2024 11:1 5 AM PRODUCTION TROUBLESHOOTER 06/16/2024 6:31 PM PRODUCTION TROUBLESHOOTER Zeenat Hernandez EXTRUSION ENGINEER LAB BLOOD ORDERABLES Final Result [facility] ([place]ELGRADE) 1 [facility] Department [place] [address] * Screening Mammogram Bilateral W Rodney (02/18/2024 8:40 AM CDT) Anatomical Region Laterality Modality Breast Bilateral Mammography 02/18/2024 10:2 0 AM CDT Impressions 02/18/2024 10:20 AM CDT There is no mammographic evidence of malignancy. A 1 year screening mammogram is recommended. BI-RADS: 1 - Negative. The patient has been or will be contacted. The patient will be entered into a reminder system with a target due date of 1 year for her next mammogram. Electronically signed by: Lisbet Pollack M.D. Narrative 02/18/2024 10:20 AM CDT EXAMINATION: SCREENING MAMMOGRAM BILATERAL W RODNEY ORDERING HEALTHCARE PROVIDER: SELF SCREENING MAMMOGRAM HISTORY: Routine screening mammography. COMPARISON: 11/30/2022,11/03/2021, 07/01/2018 TECHNIQUE: CC and MLO views of the bilateral breasts were obtained with digital technique using breast tomosynthesis with C view. Computer aided detection was utilized. FINDINGS: DENSITY: There are scattered areas of fibroglandular density. BREASTS: There are no suspicious masses, suspicious calcifications, or other suspicious findings in either breast. There has been no suspicious interval change. Self Screening Mammogram IMG MAMMO PROCEDURES Fi nal Result * Colonoscopy (11/29/2023 9:02 AM CDT) Anatomical Region Laterality Modality Other Narrative Procedure Note Christine Rucker MD - 11/29/2023 9:02 AM CDT [facility] Patient Name: Georgina Lopez Procedure Date: 11/29/2023 9:02 AM Date of : 1970 Admit Type: Outpatient Age: 53 Gender: Female Attending MD: Christine Rucker M.D. Room: [facility] ENDOSCOPY ROOM 1 Note Status: Finalized Patient Profile: This is a 53 year old female. Her aunt had coloncancer Procedure: Colonoscopy Indications: Screening for colon cancer: Family history of colorectal cancer in distant relative(s), This isthe patient's first colonoscopy Referring MD: Michael Lorenzana M.D. Providers: Christine Rucker M.D. Impression: - The entire examined colon is normal. - No specimens collected. Recommendation: - Repeat colonoscopy in 8 years for screeningpurposes. Medicines: Monitored Anesthesia Care Complications: No immediate complications. Estimated Blood Loss: Estimated blood loss: none. Procedure: Pre-Anesthesia Assessment: - Prior to the procedure, a History and Physicalwas performed, and patient medications and allergieswere reviewed. The patient's tolerance of previous anesthesia was also reviewed. The risks andbenefits of the procedure and the sedation options and risks were discussed with the patient. All questions were answered, and informed consent was obtained. Prior Anticoagulants: The patient has taken noanticoagulant or antiplatelet agents. ASA Grade Assessment: Per anesthesia note and evaluation. After reviewing the risks and benefits, the patient was deemed in satisfactory condition to undergo the procedure. The benefits, risks and alternatives of theprocedure and sedation were discussed and informed consentwas obtained. All questions were answered. Please referto the signed informed consent document in the medical record. The bowel preparation used was Miralax via split dose instruction. The bowel preparation usedwas bisacodyl tablets via split dose instruction. The scope was passed under direct vision. The Pediatric Colonoscope PCF-H190L [id number] was introducedthrough the anus and advanced to the the cecum, identifiedby appendiceal orifice and ileocecal valve. Thequality of the bowel preparation was good. Bowel prep was administered using a split dose. Findings: The perianal and digital rectal examinations were normal. The cecum appeared normal. The colon (entire examined portion) appeared normal. No polyps and no mass lesions noted. The rectum appeared normal. Retroflexion of the rectum wasunremarkable. Electronically signed by Christine Rucker M.D. Christine Rucker M.D. 11/29/2023 10:30:22 AM Number of Addenda: 0 Note Initiated On: 11/29/2023 9:02 AM Procedure Code(s): --- Professional --- 48503, Colonoscopy, flexible; diagnostic, including collection of specimen(s) by brushing or washing, when performed (separateprocedure) Diagnosis Code(s): --- Professional --- Z12.11, Encounter for screening for malignant neoplasm of colon CPT copyright 2020 [employer]. All rights reserved. The codes documented in this report are preliminary and upon acoustical installer reviewmay be revised to meet current compliance requirements. Recognized by the [employer] for promoting quality in endoscopy Christine Rucker MD ENDOSCOPY PROCEDURES Final Result from Last 3 Months or Most Recently Relevant to Health Maintenance Insurance [address] [facility], [facility] CHOICE PLUS [facility] CHOICE PLUS [facility] CHOICE PLUS Advance Directives For more information, please contact: [phone] * Full Code (Latest Code Status on File) Date Activated Date Inactivated Comments 11/29/2023 9:01 AM 11/29/2023 3:34 PM * Full Code Date Activated Date Inactivated Comments 11/29/2023 9:01 AM 11/29/2023 9:01 AM Care Teams Mix Chemist Relationship Specialty Start Date End Date Michael Lorenzana MD [address] [place] [address] PCP - General Family Medicine 09/28/21
--- OUTSIDE RECORDS SUMMARY | 2024-09-12 17:15 | XMS_ITS | Clinical Summary ---
Author Organization [facility] Address [address] [address] Phone Care Team Providers Care Disk Recordist Name Role Phone Angel Quiñonez Primary Care Provider [phone] Allergies No known active allergies Medications atenolol (TENORMIN) 50 MG Tablet Take 50 mg by mouth daily. Active LEVOTHYROXINE SODIUM PO Take 0.075 mg by mouth daily. Active Cetirizine HCl (ZYRTEC ALLERGY PO) Take by mouth daily. Active Active Problems Problem Noted Date Diagnosed Date Cutaneous skin tags 08/30/2017 Spider veins of both lower extremities 8 Epidermoid cyst 08/30/2017 Right axillary hidradenitis 07/19/2017 Family History Medical History Relation Name Comments Seizures Brother No Known Problems Father Cancer Maternal Aunt Bone No Known Problems Maternal Grandfather Diabetes Maternal Grandmother Chronic Obstructive Pulmonary Disease Mother Emphysema Mother No Known Problems Other No Known Problems Paternal Grandfather No Known Problems Paternal Grandmother No Known Problems Sister Relation Name Status Comments Brother Father Maternal Aunt Maternal Grandfather Maternal Grandmother Mother Alive Other Paternal Grandfather Paternal Grandmother Sister Social History Tobacco Use Types Packs/Day Years Used Date Smoking Tobacco: Never Smokeless Tobacco: Never Tobacco Cessation:Counseling Given: No Alcohol Use Standard Drinks/Week Comments Yes 0 (1 standard drink = 0.6 oz pur e alcohol) occasional Comments No Sex and Gender Information Value Date Recorded Sex Assigned at Not on file Legal Sex Female 12:44 AM CDT Gender Identity Not on file Sexual Orientation Not on file Last Filed Vital Signs Vital Sign Reading Time Taken Comments Blood Pressure 122/86 09/06/2017 1:35 PM CDT Pulse 76 09/06/2017 1:35 PM CDT Temperature 36.7 C (98 F) 09/06/2017 1:35 PM CDT Respiratory Rate 20 09/06/2017 1:35 PM CDT Oxygen Saturation 99% 09/06/2017 1:35 PM CDT Inhaled Oxygen Concentration - - Weight 108.9 kg (240 lb) 09/06/2017 1:35 PM CDT Height 157.5 cm (5' 2 ) 09/06/2017 1:35 PM CDT Body Mass Index 43.9 09/06/2017 1:35 PM CDT Plan of Treatment Health Maintenance Due Date Last Done Comments Hepatitis C Virus (HCV) Screening 1970 TdaP Immunization 1970 Hepatitis B Immunization (1 of 3 - 19+ 3-dose series) 1991 Colonoscopy 2017 Colorectal Cancer Screening 2017 Cologuard 2022 Immunochemical Fecal Occult Blood 2022 Pneumococcal Immunization (5 0+ years) (1 of 1 - PCV) 2022 Zoster Immunization (1 of 2) 2022 Influenza Immunization (#1) 2024 02/23/2014 SARS-COV-2 Immunization (1 - 2023- season) 2024 Respiratory Syncytial Virus (RSV) Immunization (Adult) (1 - 1-dose 75+ series) 2047 Meningococcal Immunization (ACWY) Aged Out No longer eligible based on patient's age to complete this topic Rotavirus Immunization Aged Out No lo nger eligible based on patient's age to complete this topic Insurance [facility] Care Teams Disk Recordist Relationship Specialty Start Date End Date Angel Quiñonez PAC [address] [place] [address] PCP - General Physician Playground Official 07/19/17
--- OUTSIDE RECORDS SUMMARY | 2024-09-12 17:15 | XMS_ITS | Referral Summary ---
Author Organization [facility] sheng Address [address] [place] [address] Care Team Providers Care Plastic Tile Layer Name Role Phone Michael Lorenzana MD Primary Care Provider [phone] Encounters Date Type Department Care Team Description 07/06/2024 Orders Only [facility] [address] [phone] Michael Lorenzana MD 07/06/2024 Telephone [facility] [address] [phone] Michael Lorenzana MD 06/23/2024 11:00 AM INS[facility] Office Visit [facility] [address] [phone] Zeenat Hernandez NP Physical exam, annual (Primary Dx); Hypothyroidism, unspecified type; Anxiety and depression; Prediabetes; Encounter for screening for lipid disorder; Morbid obesity with BMI of 45.0-49.9, adult (HCC) 06/16/2024 11:15 AM [facility] Lab [facility] [address] [place] [phone] Encounter for screening for lipid disorder; Hypothyroidism, unspecified type from Last 3 Months Allergies Active Allergy Reactions Criticality Noted Date [...] 1 TABLET (75 MCG TOTAL) BY MOUTH ANESTHESIA ASSOCIATE BEFORE BREAKFAST 90 tablet 2 4 Active [...] 03/31/2024 Assessment & Plan (03/31/2024 9:22 AM INSPECTOR BULLET SLUGS): Healing well, jerson removed. Laceration is well approximated, no drainage. No surrounding erythema. Instructed patient to apply Aquaphor daily. Gastroenteritis 03/31/2024 Assessment & Plan (03/31/2024 9:22 AM INSPECTOR BULLET SLUGS): Resolving; no longer having any abdominal cramping or vomiting. Continue to follow bland diet. Follow-up as needed. Physical exam, annual 06/20/2023 Assessment & Plan (06/23/2024 12:36 PM INSPECTOR BULLET SLUGS): Annual exam; screenings and vaccinations. She is up-to-date on her colonoscopy as well as mammogram. Following with coil winding supervisor annually. Assessment & Plan (06/20/2023 12:39 PM INSPECTOR BULLET SLUGS): Preventive exam; reviewed recommended preventive screenings and vaccinations. -scheduled for colonoscopy this summer -up-to-date on mammogram Prediabetes 06/20/2023 Assessment & Plan (06/23/2024 12:35 PM INSPECTOR BULLET SLUGS): Lab Results Component Value Date HGBA1C 5.8 (H) 10/25/2023 HGBA1C 6.1 (H) 06/14/2023 HGBA1C 5.8 (H) 06/26/2022 Assessment & Plan (06/20/2023 12:48 PM INSPECTOR BULLET SLUGS): Lab Results Component Value Date HGBA1C 6.1 [...] Morbid obesity with BMI of 45.0-49.9, adult /2 Assessment & Plan (06/23/2024 12:39 PM INSPECTOR BULLET SLUGS): Encouraged patient to focus on diet in addition to exercise. Limiting portion sizes as well as following lower carb diet. Assessment & Plan (06/20/2023 12:42 PM INSPECTOR BULLET SLUGS): Patient feels she developed tolerance to phentermine, discussed holding medication for a few weeks or taking breaks to reduce tolerance. She admits that she has not working on diet like she should be at this time. Has previously seen civil engineering project designer in his wear of need to eat [...] 07/05/2022 Assessment & Plan (06/23/2024 12:38 PM INSPECTOR BULLET SLUGS): Moods improved with bupropion. Continue to monitor, patient to reach out with any changes gardner. We discussed continuing current dosage for now, can consider reducing dosage in future. Recommended continuing medication for at least 6-12 months following remission. Assessment & Plan (06/20/2023 12:40 PM INSPECTOR BULLET SLUGS): Moods are stable, feels she is benefitted addition of CBD. Discussion regarding tapering bupropion verse continued monitoring for now. Patient will continue bupropion at this time. Can consider reducing dosage from 400 mg daily to 200 mg daily. Assessment & Plan (12/06/2022 8:54 AM CDT): Moods are stable; continue bupropion. Will continue to monitor. Assessment & Plan (07/05/2022 12:38 PM INSPECTOR BULLET SLUGS): Stable; patient doing well with bupropion 200 mg daily. We discussed changing medication to 150 mg twice daily, patient prefers to continue to monitor for now. Hypothyroidism 11/01/2021 Assessment & Plan (06/23/2024 12:36 PM INSPECTOR BULLET SLUGS): Levothyroxine 75 mcg daily. Will check TSH/T4 and make changes as needed. Lab Results Component Value Date TSH 1.40 06/16/2024 TSH 2.12 10/25/2023 TSH 3.89 06/14/2023 Assessment & Plan (06/20/2023 12:40 PM INSPECTOR BULLET SLUGS): Levothyroxine 75 mcg daily. Will check TSH/T4 and make changes as needed. Lab Results Component Value Date TSH 3.89 06/14/2023 TSH 2.66 06/26/2022 TSH 2.14 10/31/2021 Assessment & Plan (12/06/2022 8:53 AM CDT): Levothyroxine 75 mcg daily. Will check TSH/T4 and make changes as needed. Lab Results Component Value Date TSH 2.66 06/26/2022 TSH 2.14 10/31/2021 Assessment & Plan (07/05/2022 12:35 PM INSPECTOR BULLET SLUGS): Stable; continue Levothyroxine 75 mcg daily. Lab Results Component Value Date TSH 2.66 06/26/2022 TSH 2.14 10/31/2021 Assessment & Plan (04/04/2022 9:37 AM INSPECTOR BULLET SLUGS): Levothyroxine 75 mcg daily. Will check TSH/T4 [...] regimen. Assessment & Plan (07/05/2022 12:34 PM INSPECTOR BULLET SLUGS): Condition is stable, will decrease furosemide to as needed. Reviewed labs today with patient.Discussed/ordered labs, encouraged healthy, low carbohydrate lifestyle and at least 150min/week of exercise, continue on atenolol. Assessment & Plan (04/04/2022 9:31 AM INSPECTOR BULLET SLUGS): Condition is stable Discussed/ordered labs, encouraged healthy, [...] well as how it contributes over the documentation liaison to cardiovascular risk, recalcitrant hypertension, and stroke risk. Encounter for screening for lipid disorder 11/01 Leg swelling 11/01/2021 Assessment & Plan (07/05/2022 11:57 AM INSPECTOR BULLET SLUGS): Not a problem during winter months. Discussed [...] 06/20/2023 Assessment & Plan (07/05/2022 12:36 PM INSPECTOR BULLET SLUGS): Continues diet and exercise efforts. Assessment & Plan (04/04/2022 9:31 AM INSPECTOR BULLET SLUGS): Encouraged her to check with insurance for weight loss medication coverage. Not a candidate for stimulants weight loss medications. Continues diet and exercise efforts, discussed TDEE. Offered referral to weight loss clinic at [facility], defers at this time. Patient would like to trial mounjaro with use of coupon. Denies any personal or family history of MTC. Reviewed medication SE's and scheduling. Return to clinic in 3 months. Assessment & Plan (11/01/2021 12:49 PM CDT): Discussed healthy diet and importance of regular physical activity. Body mass index 40.0-44.9, adult (CMS/HCC) 10/23/2021 08/06/2022 Assessment & Plan (11/01/2021 12:49 PM CDT): Immunizations Immunization Administration Dates Next Due Influenza, Quadrivalent, Spl it, Intramuscular 03/30/2020,02/17/2019 Influenza, Trivalent, IM (MDV) 02/23/2014 Influenza, Unspecified 03/31/2024(Deferr ed: Patient Refused),06/20/2023(Deferred: Patient Refused),02/17/2023(Deferred: Patient Refused),02/17/2023(Deferred: Patient Refused),04/04/2022(Deferred: Patient Refused),02/17/2022(Deferred: Patient Refused),02/17/2022(Deferred: Patient Refused),02/17/2022(Deferred: Patient Refused),05/20/2021(Deferred: Patient Refused),02/17/2021,01/18/2021(Deferre d: Patient Refused) Tdap 03/21/2024 Social History Tobacco Use Types Packs/Day Years [...] on file Legal Sex Female 5:47 AM INSPECTOR [employer] Gender Identity Female 10/26/2022 9:08 AM CDT Sexual Orientation Straight 02/17/2024 9: 33 PM CDT Last Filed Vital Signs Vital Sign Reading Time Taken Comments Blood Pressure 122/84 06/23/2024 10:41 AM INSPECTOR [employer]UGS Pulse 61 06/23/2024 10:41 AM INSPECTOR [employer]UGS Temperature 36.5 C (97.7 F) 06/23/2024 10:41 AM INSPECTOR [employer]UGS Respiratory Rate 16 06/23/2024 10:4 1 AM INSPECTOR [employer]UL[employer]UGS Oxygen Saturation 98% 06/23/2024 10: 41 AM INSPECTOR BULLET [employer]UGS Inhaled Oxygen Concentration - - Weight 120.6 kg (265 lb 12.8 oz) 2024 10:41 AM INSPECTOR BUL[facility]UGS Height 157.5 cm (5' 2.01 ) 06/23/2024 1 0:41 AM INSPECTOR BUL[employer]UGS Body Mass Index 48.6 06/23/2024 10:41 AM INSPECTOR [employer]UL[employer]UGS Plan of Treatment Not on file Procedures Procedure Name Priority Date/Time Associated Diagnosis Comments EGFR Routine 06/16/2024 11:15 AM INSPECTOR BULLET SLUGS Encounter for screening for lipid disorder DIFFERENTIAL AUTO Routine 06/16/2024 11: 15 AM INSPECTOR [employer]UGS Encounter for screening for lipid disorder T4, FREE Routine 06/16/2024 11:15 AM INSPECTOR BULLET SLUGS Hypothyroidism, unspecified type TSH Routine 06/16/2024 11:15 AM INSPECTOR BULLET SLUGS Hypothyroidism, unspecified type CBC WITH AUTO DIFFERENTIAL Routine 06/16/2024 11:15 AM INSPECTOR BULLET SLUGS Encounter for screening for lipid disorder COMPREHENSIVE METABOLIC PANEL Routine 06/16/2024 11:15 AM INSPECTOR [employer]ULLET SLUGS Encounter for screening for lipid disorder LIPID PANEL Routine 06/16/2024 11:15 AM INSPECTOR BULLET SLUGS Encounter for screening for lipid disorder SCREENING MAMMOGRAM BILATERAL W RODNEY Schedule Routine, Read Routine (OP Routine) 02/18/2024 8:40 AM CDT Screening mammogram, encounter for COLONOSCOPY 11/29/2023 9:02 AM CDT from Last 3 Months or Most Recently Relevant to Health Maintenance Results * eGFR (06/16/2024 11:15 AM INSPECTOR BULLET SLUGS) eGFR 84 >=60 mL/min/1. 73 m2 Comment: [...] was last reviewed 2021. Testing performed by: [address], [address] Blood 06/16/2024 11:1 5 AM INSPECT[facility] [employer]UL[facility]UGS 06/16/2024 6:53 PM INSPECTOR [employer] [facility]UGS Zeenat Hernandez NP LAB BLOOD ORDERABLES Final Result [facility] ([place]) 1 [facility] [place] [address] * Differential, auto (06/16/2024 11:15 AM INSPECTOR BULLET [employer]UGS) Neutrophil abs 4.2 1.5 - 6.5 K/cumm Comment:Testing performed by : [address], [address] Imm gran abs 0.0 0.0 - 0.1 K/cumm [facility] ([place]) Comment:Testing performed by : [address], [address] Lymphocyte abs 1.7 0.8 - 3.3 K/cumm [facility] ([place]) Comment:Testing performed by : [address], [address] Monocyte abs 0.4 0.2 - 0.8 K/cumm [facility] ([place]) Comment:Testing performed by : [address], [address] Eosinophil abs 0.2 0.0 - 0.5 K/cumm [facility] ([place]) Comment:Testing performed by : [facility], [address] [place] [address]., [address] Basophil abs 0.0 0.0 - 0.1 K/cumm [facility] ([place]) Comment:Testing performed by : [address] [address] Neutrophil pct 64.9 % [facility] ([place]) Comment: Interpretive Data Percent cell count reference ranges are not reported, since discordance with absolute values may lead to misinterpretation of CBC data. Current Interpretive Data was last revised on 2017. Testing performed by: [facility], [address] [place] [address]., [address] Imm gran pct 0.3 % [facility] ([place]) Comment: Interpretive Data Percent cell count reference ranges are not reported, since discordance with absolute values may lead to misinterpretation of CBC data. Current Interpretive Data was last revised on 2017. Testing performed by: [address] [address] Lymphocyte pct 25.5 % [facility] ([place]) Comment: Interpretive Data Percent cell count reference ranges are not reported, since discordance with absolute values may lead to misinterpretation of CBC data. Current Interpretive Data was last revised on 2017. Testing performed by: [address] [address] Monocyte pct 5.6 % [facility] ([place]) Comment: Interpretive Data Percent cell count reference ranges are not reported, since discordance with absolute values may lead to misinterpretation of CBC data. Current Interpretive Data was last revised on 2017. Testing performed by: [address] [address] Eosinophil pct 3.1 % [facility] ([place]) Comment: Interpretive Data Percent cell count reference ranges are not reported, since discordance with absolute values may lead to misinterpretation of CBC data. Current Interpretive Data was last revised on 2017. Testing performed by: [address] [address] Basophil pct 0.6 % [facility] ([place]) Comment: Interpretive Data Percent cell count reference ranges are not reported, since discordance with absolute values may lead to misinterpretation of CBC data. Current Interpretive Data was last revised on 2017. Testing performed by: [address], [address] Blood 06/16/2024 11:1 5 AM INS[facility] [employer] [employer]GS 06/16/2024 6:31 PM INSPECTOR [employer]UGS Zeenat Hernandez MOTOR MAN LAB BLOOD ORDERABLES Final Result [facility] ([place]) 1 [facility] [place] [address] * (ABNORMAL) CBC with auto differential (06/16/2024 11:15 AM INSPECTOR BUL[facility]UGS) WBC 6.5 3.8 - 9.9 K/cumm Comment:Testing performed by : [address], [address] Hgb 14.4 11.9 - 15.5 g/dL [facility] ([place]) Comment:Testing performed by : [address], [address] Hct 45.3 35.6 - 45.5 % [facility] ([place]) Comment:Testing performed by : [address], [address] Plt 366 150 - 400 K/cumm [facility] ([place]) Comment:Testing performed by : [address], [address] MPV 10.3 9.1 - 12.3 fL [facility] ([place]) Comment:Testing performed by : [address], [address] RBC 4.89 3.90 - 5.20 M/cumm [facility] ([place]) Comment:Testing performed by : [address], [address] MCV 92.6 81.3 - 96.4 fL [facility] ([place]) Comment:Testing performed by : [address], [address] MCH 29.4 27.1 - 33.3 pg [facility] ([place]) Comment:Testing performed by : [address], [place]., [address] MCHC 31.8(L) 32.3 - 35.7 g/dL [facility] ([place]) Comment:Testing performed by : [facility], [address] [place] [address], [address] RDW CV 13.6 11.1 - 14.9 % [facility] ([place]) Comment:Testing performed by : [facility], [address] [place] [address], [address] RDW SD 46.5 35.7 - 48.1 fL [facility] ([place]) Comment:Testing performed by : [facility], [address] [place] [address], [address] NRBC abs 0.00 0.00 - 0.01 K/cumm [facility] ([place]) Comment:Testing performed by : [facility], [address] [place] [address], [address] Blood 06/16/2024 11:1 5 AM INSPECTOR BULLET SLUGS 06/16/2024 6:31 PM INSPECTOR BUL[facility]UGS Zeenat Hernandez MOTOR MAN LAB BLOOD ORDERABLES Final Result [facility] ([place]) 1 [facility] [place] [address] * TSH (06/16/2024 11:15 AM INSPECTOR BULLET SLUGS) [facility] Thyroid Stimulating Hormone 1.40 0.30 - 4.20 mcIUnit/mL Comment:Testing performed by : [facility], [address] [place] [address], [address] Blood 06/16/2024 11:1 5 AM INSPECT[facility] BULLET SLUGS 06/16/2024 6:31 PM INSPECTOR BUL[facility]UGS Zeenat Hernandez MOTOR MAN LAB BLOOD ORDERABLES Final Result [facility] ([place]) [address] [place] [address] * T4, free (06/16/2024 11:15 AM INSPECTOR BULLET SLUGS) Free T4 1.14 0.90 - 1.70 ng/dL Comment:Testing performed by : [facility], [address] [place] [address]., [address] Blood 06/16/2024 11:1 5 AM INSPECTOR BULLET SLUGS 06/16/2024 6:31 PM INSPECTOR BULLET SLUGS Zeenat Hernandez MOTOR MAN LAB BLOOD ORDERABLES Final Result [facility] ([place]) 1 [facility] [place] [address] * (ABNORMAL) Lipid panel (06/16/2024 11:15 AM INSPECTOR BULLET SLUGS) Pathologist [facility] Cholesterol 219(H) 30 - 199 mg/dL Comment: [...] last revised on 2018. Testing performed by: [facility], [address] [place] [address]., [address] Triglycerides 166(H) <=149 mg/dL [facility] ([place]) [...] last revised on 2018. Testing performed by: [facility], [address] [place] [address]., [address] HDL 57 >=40 mg/dL [facility] ([place]) [...] last revised on 2018. Testing performed by: [address] [address] LDL, calculated 133(H) <=129 mg/dL [facility] [...] NCEP Expert Panel. Circulation 2004;110:227 3. Brannon Valle al. SUZANNE Cardiol. 2020 September 17;5(5):540-548. doi: 10.1001/jamacardio.2020.0013 Current Interpretive Data was last revised on 2024. Testing performed by: [facility], [address] [place] [address]., [address] Non-HDL Cholesterol 162 mg/dL [facility] ([place]) [...] last revised on 2018. Testing performed by: [facility], [address] [place] [address]., [address] Chol/HDL ratio 4 [facility] ([place]) Comment:Testing performed by : [facility], [address] [place] [address]., [address] Blood 06/16/2024 11:1 5 AM INSPECT[facility] [employer]UGS 06/16/2024 6:31 PM INSPECTOR BUL[facility]UGS Zeenat Hernandez MOTOR MAN LAB BLOOD ORDERABLES Final Result [facility] ([place]) 1 [facility] [place] [address] * Comprehensive metabolic panel (06/16/2024 11:15 AM INSPECTOR BULLET [facility]UGS) Sodium 140 135 - 145 mmol/L Comment:Testing performed by : [address] [address] Potassium, pl 3.8 3.3 - 4.9 mmol/L [facility] ([place]) Comment:Testing performed by : [address] [address] Chloride 102 97 - 110 mmol/L [facility] ([place]) Comment:Testing performed by : [address] [address] CO2 25 22 - 32 mmol/L [facility] ([place]) Comment:Testing performed by : [address] [address] Anion gap 13 2 - 15 mmol/L [facility] ([place]) Comment:Testing performed by : [address] [address] BUN 9 6 - 25 mg/dL [facility] ([place]) Comment:Testing performed by : [address] [address] Creatinine 0.84 0.60 - 1.10 mg/dL [facility] ([place]) Comment:Testing performed by : [address] [address] Glucose 107 70 - 199 mg/dL [facility] [...] was last revised 2022. Testing performed by: [address], [address] Calcium 9.2 8.5 - 10.3 mg/dL [facility] ([place]) Comment:Testing performed by : [address], [address] Bilirubin, total 0.3 0.1 - 1.2 mg/dL [facility] ([place]) Comment:Testing performed by : [address] [address] Protein, pl 7.6 6.5 - 8.5 g/dL [facility] ([place]) Comment:Testing performed by : [address], [address] Albumin 4.2 3.5 - 5.0 g/dL [facility] ([place]) Comment:Testing performed by : [address], [address] Alk phos 90 40 - 130 Units/L [facility] ([place]) Comment:Testing performed by : [address], [address] ALT 21 7 - 45 Units/L [facility] ([place]) Comment:Testing performed by : [address], [address] AST 28 10 - 45 Units/L [facility] ([place]) Comment:Testing performed by : [address], [place]., [address] Blood 06/16/2024 11:1 5 AM INSPECT[facility]UGS 06/16/2024 6:31 PM INSPECT[facility]GS Zeenat WoodsBalaji Hernandez MOTOR MAN LAB BLOOD ORDERABLES Final Result [facility] [place]) 1 [facility] [place] [address] * Screening Mammogram Bilateral W Rodney (02/18/2024 [...] Rucker MD - 11/29/2023 9:02 AM CDT [facility] Patient Name: Georgina Lopez Procedure Date: 11/29/2023 9:02 AM Date of : 1970 Admit Type: Outpatient Age: 53 Gender: Female Attending MD: Christine Rucker M.D. Room: [facility] ENDOSCOPY ROOM 1 Note Status: Finalized Patient [...] under direct vision. The Pediatric Colonoscope [id number] was introducedthrough the anus and advanced to [...] 9:02 AM Procedure Code(s): --- Professional --- 36428, Colonoscopy, flexible; diagnostic, including collection of specimen(s) by brushing or washing, when performed (separateprocedure) Diagnosis Code(s): --- Professional --- Z12.11, Encounter for screening for malignant neoplasm of colon CPT copyright 2020 [employer]. All rights reserved. The codes documented in this report are preliminary and upon fur finisher tailor reviewmay be revised to meet current compliance requirements. Recognized by the [employer] for promoting quality in endoscopy Christine Rucker MD ENDOSCOPY PROCEDURES Final Result from Last 3 Months or Most Recently Relevant to Health Maintenance Insurance [facility] Address: [place] [address] [facility] Address: [place] [address] [facility] Address: [place] [address] Advance Directives For more information, please contact: [phone] * Full Code (Latest Code Status on File) Date Activated Date Inactivated Comments 11/29/2023 9:01 AM 11/29/2023 3:34 PM * Full Code Date Activated Date Inactivated Comments 11/29/2023 9:01 AM 11/29/2023 9:01 AM Care Teams Plastic Tile Layer Relationship Specialty Start Date End Date Michael Lorenzana MD [address] [place] [address] PCP - General Family Medicine 09/28/21
[2024-09-12 17:17] VITALS: BP 128/115; PULSE 81; RESP 18; TEMP 36.6; O2SAT 98
--- OUTSIDE RECORDS SUMMARY | 2024-09-12 17:28 | XMS_ITS ---
Care Plan - [facility] Created on: September 12, 2024 CURTIS COLLINS : 1970 Sex: Female Author Organization [facility] Address [address] [place] [address] Phone Care Team Providers Care Potato Peeler Name Role Phone RAS GRACE MD Primary Care Provider
[2024-09-12] MEDS: MORPHINE SULFATE (*CRX) 4 MG/ML INJ IM (17:29)
--- OUTSIDE RECORDS SUMMARY | 2024-09-12 17:29 | XMS_ITS | Clinical Summary ---
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
--- OUTSIDE RECORDS SUMMARY | 2024-09-12 17:29 | XMS_ITS ---
Author Organization [facility] Address [address] [place] [address] Phone Care Team Providers Care Foam Molder Name Role Phone RAS GRACE MD Primary [...]
--- NOTE | 2024-09-12 18:33 | ED.UPPEXIN ---
HPI - Extremity Injury (Upper) General Chief Complaint: Extremity Injury, Upper Stated Complaint: arm pain Time Seen by Provider: 09/12/24 17:21 Source: patient and family Mode of arrival: ambulatory Limitations: no limitations History of Present Illness HPI narrative: this is a 54-year-old female that fell and injured her left arm while playing pickleball earlier this afternoon causing pain and deformity in her left arm and elbow area, pain is 10/10 no enter injuries noted does have a brisk radial pulse on the left and no numbness or tingling has good range of motion in her fingers and wrist. Patient has a history of hypothyroidism and depression. complaint: injury to: left Onset (ago): hour(s) Other Extremity Injury: Left: elbow ( pain and tenderness) and arm ( pain and tenderness) Place: outdoors Severity: severe Severity scale (1-10): 10 Relieving factors: cold therapy and immobilization Context: fall Related Data Home Medications ?Medication ?Instructions ?Recorded ?Confirmed ?Last Taken ?Type atenolol 25 mg tablet 50 mg PO DAILY 01/04/20 08/03/24 Unknown History levothyroxine 75 mcg tablet 75 mcg PO DAILY 01/04/20 08/03/24 Unknown History bupropion HCl 200 mg tablet,12 hr 200 mg PO Q12H 01/22/23 08/03/24 Unknown History sustained-release Allergies Allergy/AdvReac Type Severity Reaction Status Date / Time Latex, Natural Rubber AdvReac Intermediate Hives Verified 08/03/24 08:20 Review of Systems Review of Systems: All systems reviewed & are unremarkable except as noted in HPI and below PMFSH Past Medical History Medical History Concussion 03/2024 Screening mammogram, encounter for Migraines HPV in female Hypothyroidism Chronic back pain Hypertension Surgical History Surgical History History of sacrocolpopexy (10/27/18) urinary incontinence History of robot-assisted laparoscopic hysterectomy (10/27/18) RA TLH--menometrorrhagia, dysmenorrhea, uterine fibroid History of musculoskeletal system surgery (07/19/17) sweat gland removed History of tubal ligation (10/14/98) Family History Family History Grandparent Hypertension maternal grandmother Mother Diabetes mellitus pacemaker Other Lung cancer maternal aunt Bone cancer maternal aunt Other Heart disease Social History Social History Smoking status: Never smoker Second hand tobacco smoke exposure: Yes (growing up) Alcohol intake: former Alcohol use details: social 2-3 month Substance use: never Substance use type: does not use Do You Feel Safe in your Home?: Yes Lack of Transportation: No Lack of Food: Never True Current Housing: I Have Housing Concerned About Future Housing: No Difficulty Paying Gas/Electric Bills: No Difficulty Paying for Meds: No Currently Unemployed: No Education: High School Diploma/GED Difficulty w/ Childcare or Family Care: No Living arrangements: other Additional living arrangements comments: Occupation/Education: occupation 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 Gender identity (if verbalized by the patient): Female Sexual Orientation (if Verbalized by the Patient): Straight or Heterosexual Exam Const: General: healthy appearing and no acute distress Nutritional Appearance: well nourished Orientation/consciousness: patient oriented x3 Limitations: no limitations HENMT: Head: normal to inspection Eyes: Conjunctivae: conjunctivae normal Pupils: Equal, round and reactive pupils present Neck: Neck: normal visual inspection Chest: Chest palpation & inspection: normal inspection of the chest Resp: Effort & Inspection: normal respiratory effort Auscultation: clear to auscultation bilaterally Cardio: Rate: regular rate Rhythm: regular rhythm GI: GI Palp: Yes Soft to palpation Auscultation: normal bowel sounds Skin: General skin exam: normal color Rashes: no rashes Wounds: wounds noted Neuro: General: patient oriented x3 and moves all extremities Extrem: Other: Pain in her distal left upper arm and decreased range of motion. Course Course Emergency Course: Patient with some fracture of the distal end of her left humerus with minimal displacement, oblique fracture, morphine IM and Dilaudid administered for pain control. after speaking to orthopedics at [facility] advised splint pain control sling and follow-up in their office. Since the fracture is oblique but minimally displaced advised patient can safely go home and follow up. If symptoms should worsen orthopedics advised to go directly to [place] for admission. Vital Signs Vital signs: Vital Signs Temperature 36.6 C 09/12/24 17:17 Pulse Rate 81 09/12/24 17:17 Respiratory Rate 18 09/12/24 17:17 Blood Pressure 128/115 H 09/12/24 17:17 Pulse Oximetry 98 09/12/24 17:17 Oxygen Delivery Room Air 09/12/24 17:17 Temperature 36.6 C 09/12/24 17:17 Pulse Rate 81 09/12/24 17:17 Respiratory Rate 18 09/12/24 17:17 Blood Pressure 128/115 H 09/12/24 17:17 Pulse Oximetry 98 09/12/24 17:17 Oxygen Delivery Room Air 09/12/24 17:17 Critical Care Time Critical Care Time Critical Care Time: No Discharge Plan Discharge Clinical Impression: Humeral distal fracture Qualifiers: Encounter type: initial encounter Fracture type: closed Fracture morphology: other fracture Fracture alignment: displaced Laterality: left Qualified Code(s): S42.492A - Other displaced fracture of lower end of left humerus, initial encounter for closed fracture Patient Disposition: Home Condition: Stable Instructions: Antibiotic Form, Arm Fracture in Adults (ED) Additional Instructions: advised to follow-up with orthopedics, call their office for scheduled appointment. Take medication as prescribed and if symptoms should worsen advised to go directly to [facility] Per orthopedics on-call. Patient Language: [place] Prescriptions: New oxycodone-acetaminophen [Percocet] 5-325 mg tablet 1 tablet PO Q6H PRN (Reason: pain) Qty: 20 0RF No Action bupropion HCl 200 mg tablet sustained-release 12 hr 200 mg PO Q12H atenolol 25 mg Tablet 50 mg PO DAILY levothyroxine 75 mcg Tablet 75 mcg PO DAILY Follow-up/Referrals: Harms,Michael Shipman M.D. [Primary Care Provider] - Time of Disposition: 18:48
[2024-09-12] MEDS: HYDROmorphone HCL INJ (*CRX) 2 MG/ML VIAL 1 MG IM (18:54)
[2024-09-12 19:33] VITALS: BP 149/83; PULSE 72; RESP 20; TEMP 36.9; O2SAT 94
== END 2024-09-12 19:34 | disposition home or self-care (01) ==
PROVIDERS: Emergency Provider Emergency Medicine; PCP Family Medicine
DX: S42.492A Other displaced fracture of lower end of left humerus, initial encounter for closed fracture (principal); W18.30XA Fall on same level, unspecified, initial encounter; Y93.69 Activity, other involving other sports and athletics played as a team or group
CPT/HCPCS: 29105; 73030; 73060; 73090; 73110; 96372; 99284; A4565; J1171; J2270

== ENCOUNTER 2024-10-21 10:46 | Outpatient (RCR) | payer OTHER, SELFPAY ==
--- NOTE | 2024-10-23 08:26 | BUOTOPEVAL ---
Assessment and note entered by Palak Diaz, OT Evaluation Information Assessment Status Evaluation Diagnosis Closed displaced spiral fracture of shaft of L humerus with routine healing ICD-10 Condition Codes (OT) Generalized muscle weakness M62.81 Other ICD-10 Condition Codes ( Left radial nerve palsy OT) Onset September 2024 Reported Pain Level Pain Score 0: Self Report Assessment OT Clinical Summary The patient is a 54 year old female who was referred to outpatient OT due to L humerus fracture, left radial nerve palsy with ORIF left humerus. She previously demonstrated WNL UE strength, ROM, and sensation. 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 The patient demonstrates the need for skilled OT to address deficits and improve functional use of L UE. Patient is R hand dominant. Patient demonstrates understanding of HEP and was educated to utilize ice at home if increased pain following therapy or exercises. Plan of Care Interventions Therapeutic Exercise,Manual Therapy,Neuro Re- education,Therapeutic Activities,Hot Pack/Cold Pack,Electrical Stimulation,Sensory Integrative Techniques,Self-Care/Home Management OT Services Indicated Yes OT Services Indicated Yes Treatment Frequency and 2-3x/week for 12 visits. Duration These treatments will address the objective and functional deficits as defined above. The patient will be advanced safely and appropriately in order for the patient to progress towards his/her prior level of function. Additional exercises will be introduced and as well as a comprehensive home exercise program upon discharge, if needed, ?to ensure carryover of functional gains achieved in the clinic. This treatment plan has been reviewed and agreement upon by the patient.
--- NOTE | 2024-10-23 08:26 | OPREHPOC ---
Outpatient Therapy Plan of Care This is a Multidisciplinary Plan of Care that may contain components documented by all disciplines (PT, OT, and ST.) OT Problem 1 OT Problem #1 Knowledge Deficit OT Goal 1 Goal / Goal Update The patient will demonstrate 100% knowledge and return demonstration of UE HEP needed to improve ROM of L shoulder and follow through with scar massage. Target Visit 12 OT Goal 1 Goal / Goal Update The patient will demonstrate increased AROM of L shoulder demonstrating shoulder flexion at >110 degrees, shoulder abduction at >90 degrees, internal rotation at >50 degrees and external rotation at >55 degrees in order to improve functional use of arm to reach overhead and wash hair. SOC 10/21/2024 L UE Shoulder flexion 95 degrees Shoulder internal rotation 39 degrees Shoulder external rotation 43 degrees Shoulder abduction 50 degrees Target Visit 12 OT Goal 2 Goal / Goal Update The patient will demonstrate increased AROM of L elbow at >140 degrees with reports of feeling symmetrical to R UE in order to return to PLOF for grooming tasks. Target Visit 12 OT Problem 3 OT Problem #3 Impaired Sensation OT Goal 1 Goal / Goal Update The patient will demonstrate minimal numbness of L arm through utilizing nerve gliding techniques to improve sensation of arm for safety during daily tasks. Target Visit 12 OT Goal 2 Goal / Goal Update The patient will demonstrate no signs of scar buildup to L UE through utilizing scar massage with 100% return demonstration of techniques. Target Visit 12
--- NOTE | 2024-11-16 09:27 | BUOTOPEVAL ---
Assessment and note entered by Palak Diaz, OT Evaluation Information Assessment Status Progress Diagnosis Closed displaced spiral fracture of shaft of L humerus with routine healing ICD-10 Condition Codes (OT) Generalized muscle weakness M62.81 Other ICD-10 Condition Codes ( Left radial nerve palsy OT) Onset September 2024 Reported Pain Level Pain Score 0: Self Report Assessment OT Clinical Summary The patient demonstrates good progress toward goals through significant increase in L UE AROM of shoulder and elbow, increased functional improvements with ability to dress self to prior level of independence, significant change in QuickDASH questionnaire scoring from 65.9% to 47.7 % demonstrating increased functional use of arm, and decreased scar build up at posterior arm. The patient continues to demonstrates slightly below WNL for shoulder ROM for flexion, abduction, internal and external rotation, weakness of L UE due to weight restriction and minimal use of UE following injury, sensation deficits reporting severe numbness of L arm, moderate scar buildup at posterior elbow which result in patient's continued need for OT. Therapist to educated patient on strengthening HEP following weight restriction release from MD next week. The patient demonstrates good progress towards goals with reasonable expectation for improvement with continued treatment. Plan of Care Interventions Therapeutic Exercise,Manual Therapy,Neuro Re- education,Therapeutic Activities,Hot Pack/Cold Pack,Electrical Stimulation,Sensory Integrative Techniques,Self-Care/Home Management,Prosthetic Training OT Services Indicated Yes Treatment Frequency and 1-2x/week for 10 visits. Duration These treatments will address the objective and functional deficits as defined above. The patient will be advanced safely and appropriately in order for the patient to progress towards his/her prior level of function. Additional exercises will be introduced and as well as a comprehensive home exercise program upon discharge, if needed, ?to ensure carryover of functional gains achieved in the clinic. This treatment plan has been reviewed and agreement upon by the patient.
--- NOTE | 2024-11-16 09:28 | OPREHPOC ---
Outpatient Therapy Plan of Care This is a Multidisciplinary Plan of Care that may contain components documented by all disciplines (PT, OT, and ST.) OT Problem 1 OT Problem #1 Knowledge Deficit OT Goal 1 Goal / Goal Update The patient will demonstrate 100% knowledge and return demonstration of UE HEP needed to improve ROM of L shoulder and follow through with scar massage. GOAL MET; UPGRADED Add strengthening HEP once cleared from MD Target Visit 12 OT Goal 1 Goal / Goal Update The patient will demonstrate increased AROM of L shoulder demonstrating shoulder flexion at >170 degrees, shoulder abduction at >170 degrees, internal rotation at >80 degrees and external rotation at >80 degrees in order to improve functional use of arm to reach overhead and wash hair. GOAL MET; UPGRADED 11/11/2024 SOC 10/21/2024 L UE Shoulder flexion 95 degrees Shoulder internal rotation 39 degrees Shoulder external rotation 43 degrees Shoulder abduction 50 degrees PN Shoulder flexion 125 degrees Shoulder internal rotation 70 degrees Shoulder external rotation 62 degrees Shoulder abduction: 135 degrees Target Visit 12 OT Goal 2 Goal / Goal Update The patient will demonstrate increased AROM of L elbow at >140 degrees with reports of feeling symmetrical to R UE in order to return to [facility] for grooming tasks. GOAL MET; DISCONTINUED 11/11/2024 140 degrees Target Visit 12 OT Problem 3 OT Problem #3 Impaired Sensation OT Goal 1 Goal / Goal Update The patient will demonstrate moderate numbness of L arm through utilizing nerve gliding techniques to improve sensation of arm for safety during daily tasks. GOAL PROGRESSING; CONTINUE 11/11/2024 Tingling - mild Numbness - severe Target Visit 12 OT Goal 2 Goal / Goal Update The patient will demonstrate no signs of scar buildup to L UE through utilizing scar massage with 100% return demonstration of techniques. GOAL PROGRESSING; CONTINUE 11/11/2024 Moderate scar build up at elbow, along proximal length of scar, scar tissue demonstrates mild buildup Target Visit 12 OT Goal 1 Goal / Goal Update The patient will demonstrate 4/5 muscle strength of L shoulder flexion, abduction and elbow flexion /extension upon weight restriction release from MD in order to regain full function of L UE needed to lift groceries into her car without discomfort. 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 Target Visit 20
--- NOTE | 2024-12-04 07:39 | BUOTOPDC ---
Assessment and note entered by Palak Diaz, OT Evaluation Information Assessment Status Discharge Diagnosis Closed displaced spiral fracture of shaft of L humerus with routine healing ICD-10 Condition Codes (OT) Generalized muscle weakness M62.81 Other ICD-10 Condition Codes ( Left radial nerve palsy OT) Onset September 2024 Reported Pain Level Pain Score 0: Self Report Assessment OT Clinical Summary The patient demonstrates significant progress in pain symptoms, tingling, UE AROM, UE strength, and scar buildup which has increased her ability to perform dressing, grocery shopping and work tasks with increased independence. The patient demonstrates mild scar buildup and tingling of L UE, therapist educated patient to continue scar massage and radial nerve glides to help with symptoms and avoid further scar tissue buildup. She demonstrates good understanding of UE HEP for strengthening L shoulder and elbow needed to return to PLOF, she demonstrates WFL UE ROM and strength at this time and no longer requires skilled OT, she is discharged this date with HEP with good return demonstration. Plan of Care OT Services Indicated No
--- NOTE | 2024-12-04 07:41 | OPREHPOC ---
Outpatient Therapy Plan of Care This is a Multidisciplinary Plan of Care that may contain components documented by all disciplines (PT, OT, and ST.) OT Problem 1 OT Problem #1 Knowledge Deficit OT Goal 1 Goal / Goal Update The patient will demonstrate 100% knowledge and return demonstration of UE HEP needed to improve ROM of L shoulder and follow through with scar massage. GOAL MET; DISCONTINUED Target Visit 12 Progress Met OT Goal 1 Goal / Goal Update The patient will demonstrate increased AROM of L shoulder demonstrating shoulder flexion at >170 degrees, shoulder abduction at >170 degrees, internal rotation at >80 degrees and external rotation at >80 degrees in order to improve functional use of arm to reach overhead and wash hair. GOAL PARTIALLY MET; Patient demonstrates WFL UE AROM, she demonstrates slightly below norms for shoulder flexion but demonstrates good understanding of HEP and good ROM for other planes of motion SOC 10/21/2024 L UE Shoulder flexion 95 degrees Shoulder internal rotation 39 degrees Shoulder external rotation 43 degrees Shoulder abduction 50 degrees PN Shoulder flexion 125 degrees Shoulder internal rotation 70 degrees Shoulder external rotation 62 degrees Shoulder abduction: 135 degrees DISCHARGE: Shoulder flexion 125 degrees Shoulder internal rotation 74 degrees Shoulder external rotation 85 degrees Shoulder abduction: 145 degrees Target Visit 12 Progress Partially Met OT Goal 2 Goal / Goal Update The patient will demonstrate increased AROM of L elbow at >140 degrees with reports of feeling symmetrical to R UE in order to return to PLOF for grooming tasks. GOAL MET; DISCONTINUED 11/11/2024 140 degrees Target Visit 12 Progress Met OT Problem 3 OT Problem #3 Impaired Sensation OT Goal 1 Goal / Goal Update The patient will demonstrate moderate numbness of L arm through utilizing nerve gliding techniques to improve sensation of arm for safety during daily tasks. GOAL PARTIALLY MET; DISCONTINUE Tingling - mild Numbness - severe DISCHARGE: Mild for both Target Visit 12 Progress Partially Met OT Goal 2 Goal / Goal Update The patient will demonstrate no signs of scar buildup to L UE through utilizing scar massage with 100% return demonstration of techniques. GOAL PARTIALLY MET; DISCONTINUE Mild scar build up at elbow, along proximal length of scar Target Visit 12 Progress Partially Met OT Goal 1 Goal / Goal Update The patient will demonstrate 4/5 muscle strength of L shoulder flexion, abduction and elbow flexion /extension upon weight restriction release from MD in order to regain full function of L UE needed to lift groceries into her car without discomfort. 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 GOAL PARTIALLY MET; DISCONTINUE WITH HEP L: 53 lbs minimally below average Target Visit 20 Progress Partially Met
== END 2024-11-30 20:00 | disposition home or self-care (01) ==
LOC: CHSOT 10:46
DX: S42.342D Displaced spiral fracture of shaft of humerus, left arm, subsequent encounter for fracture with routine healing (principal)
CPT/HCPCS: 97110; 97140; 97165; 97530